=== PATIENT | female | born 1945 | race Native Hawaiian/Other Pacific Islander ===

== ENCOUNTER 2019-03-22 23:01 | Observation (INO) | payer MEDICARE, OTHER ==
[2019-03-22] MEDS ORDERED: SODIUM CHLORIDE 0.9% 1,000 ML IV STA (23:15)
[2019-03-22 23:34] LABS: Basophils # (A) 0.1 k/uL (0-0.2); Basophils % (A) 1 %; Eosinophils # (A) 0.1 k/uL (0-0.7); Eosinophils % (A) 1 %; HCT 37.5 % (34.0-46.0); HGB 12.5 gm/dL (11.4-16.0); Lymphocytes # (A) 1.4 k/uL (1.0-4.8); Lymphocytes % (A) 14 %; MCH 27.1 pg (25.0-35.0); MCHC 33.2 g/dL (31.0-37.0); MCV 81.4 fL (80.0-100.0); Mean Platelet Volume 7.4; Monocytes # (A) 0.5 k/uL (0-1.0); Monocytes % (A) 5 %; Neutrophils # (A) 7.5 k/uL (1.3-7.7); Neutrophils % (A) 78 %; Platelet Count 209 k/uL (150-450); RBC 4.61 m/uL (3.80-5.40); RDW 13.8 % (11.5-15.5); WBC 9.7 k/uL (3.8-10.6)
--- NOTE | 2019-03-22 23:35 | ED ---
Abdominal Pain HPI - General Stated Complaint: abd pain Time Seen by Provider: 03/22/19 23:04 Source: EMS Mode of arrival: EMS Limitations: no limitations - History of Present Illness Initial Comments: Beth is a pleasant 72 yo female who presents to the ER today for evaluation of abdominal pain and constipation x5 days. Patient states she hasnt had a BM for 4-5 days, she has developed progressively worsening epigastric and left-sided abdominal pain. Patient reports she's had decreased appetite, she has burning pain in her epigastrium. She does have a history of ulcers. She has been taking Mobic for arthritic pain. - Related Data Home Medications Medication Instructions Recorded Confirmed Atorvastatin [Lipitor] 40 mg PO DAILY 03/22/19 03/22/19 Insulin NPH Hum/Reg Insulin Hm 120 unit SQ BID 03/22/19 03/22/19 [NovoLIN 70-30 100 UNIT/ML VIAL] Levothyroxine Sodium [Synthroid] 50 mcg PO DAILY 03/22/19 03/22/19 Losartan/Hydrochlorothiazide 1 tab PO DAILY 03/22/19 03/22/19 [Losartan-Hctz 100-25 mg Tab] Meloxicam 7.5 mg PO BID 03/22/19 03/22/19 OXcarbazepine [Trileptal] 300 mg PO DAILY 03/22/19 03/22/19 OXcarbazepine [Trileptal] 600 mg PO HS 03/22/19 03/22/19 Omeprazole 40 mg PO BID 03/22/19 03/22/19 Oxybutynin Chloride 5 mg PO BID 03/22/19 03/22/19 Sertraline [Zoloft] 200 mg PO DAILY 03/22/19 03/22/19 amLODIPine [Norvasc] 5 mg PO DAILY 03/22/19 03/22/19 Allergies Allergy/AdvReac Type Severity Reaction Status Date / Time No Known Allergies Allergy Verified 03/22/19 23:31 Review of Systems ROS Statement: Those systems with pertinent positive or pertinent negative responses have been documented in the HPI. ROS Other: All systems not noted in ROS Statement are negative. Past Medical History Past Medical History: Diabetes Mellitus, Hypertension, Thyroid Disorder Additional Past Medical History / Comment(s): stomach ulcers, constipation, History of Any Multi-Drug Resistant Organisms: None Reported Past Surgical History: Appendectomy, Cholecystectomy Past Psychological History: No Psychological Hx Reported Smoking Status: Former smoker Past Alcohol Use History: None Reported Past Drug Use History: None Reported General Exam - General Exam Comments Initial Comments: Physical Exam GENERAL: Patient is well-developed and well-nourished. Appears uncomfortable HENT: Normocephalic, Atraumatic. EYES: PERRL, EOMI PULMONARY: Unlabored respirations. No audible rales rhonchi or wheezing was noted. CARDIOVASCULAR: There is a regular rate and rhythm without any murmurs gallops or rubs. ABDOMEN: Obese Well healed open cholecystectomy scar Tenderness to palpation in epigastrum Normal active bowel sounds SKIN: Skin is clear with no lesions or rashes and otherwise unremarkable. : Deferred NEUROLOGIC: Patient is alert and oriented x3. Moving all extremities spontaneously MUSCULOSKELETAL: Normal extremities with adequate strength and full range of motion. No lower extremity swelling or edema. No calf tenderness. PSYCHIATRIC: Normal psychiatric evaluation. Limitations: no limitations Course Vital Signs 03/22/19 03/23/19 03/23/19 23:02 00:28 02:13 Temperature 97.9 F 97.9 F Pulse Rate 81 82 80 Respiratory 20 20 18 Rate Blood Pressure 142/76 131/62 135/96 O2 Sat by Pulse 96 97 95 Oximetry 03/23/19 03/23/19 03/23/19 03:30 04:28 05:37 Temperature 98.6 F 98.7 F Pulse Rate 89 85 82 Respiratory 20 20 17 Rate Blood Pressure 134/56 144/59 135/58 O2 Sat by Pulse 96 95 96 Oximetry Medical Decision Making - Medical Decision Making Seen and evaluated history was obtained from patient and family next and this pleasant 73-year-old female has been taking Mobitz for arthritis pain. She now has significant burning epigastric pain, decreased by mouth intake, constipation 5 days next and labs and imaging were ordered Labs with hypokalemia, he spent protocol ordered Imaging with no acute findings patient was able to ambulate to the restroom have a small bowel movement. She reports only minimal improvement in her discomfort after this. I suspect the patient is suffering from gastritis likely due to NSAID use. Offered admit the patient for fluid resuscitation, I'll x-ray replacement and pain management. Patient is agreeable to this. Patient care was discussed Dr. Easley who agrees with plan for admission. - Lab Data Result diagrams: 03/22/19 23:20 03/22/19 23:20 Lab Results 03/22/19 03/22/19 03/22/19 Range/Units 23:20 23:20 23:20 WBC 9.7 (3.8-10.6) k/uL RBC 4.61 (3.80-5.40) m/uL Hgb 12.5 (11.4-16.0) gm/dL Hct 37.5 (34.0-46.0) % MCV 81.4 (80.0-100.0) fL MCH 27.1 (25.0-35.0) pg MCHC 33.2 (31.0-37.0) g/dL RDW 13.8 (11.5-15.5) % Plt Count 209 (150-450) k/uL Neutrophils % 78 % Lymphocytes % 14 % Monocytes % 5 % Eosinophils % 1 % Basophils % 1 % Neutrophils # 7.5 (1.3-7.7) k/uL Lymphocytes # 1.4 (1.0-4.8) k/uL Monocytes # 0.5 (0-1.0) k/uL Eosinophils # 0.1 (0-0.7) k/uL Basophils # 0.1 (0-0.2) k/uL Sodium 138 (137-145) mmol/L Potassium 2.9 L (3.5-5.1) mmol/L Chloride 98 (98-107) mmol/L Carbon Dioxide 29 (22-30) mmol/L Anion Gap 11 mmol/L BUN 27 H (7-17) mg/dL Creatinine 0.92 (0.52-1.04) mg/dL Est GFR (CKD-EPI)AfAm 71 (>60 ml/min/1.73 sqM) Est GFR (CKD-EPI)NonAf 61 (>60 ml/min/1.73 sqM) Glucose 186 H (74-99) mg/dL Plasma Lactic Acid Randy (0.7-2.0) mmol/L Calcium 9.5 (8.4-10.2) mg/dL Total Bilirubin 0.2 (0.2-1.3) mg/dL AST 31 (14-36) U/L ALT 25 (9-52) U/L Alkaline Phosphatase 134 H (38-126) U/L Troponin I 0.013 (0.000-0.034) ng/mL Total Protein 7.1 (6.3-8.2) g/dL Albumin 4.1 (3.5-5.0) g/dL Lipase 133 (23-300) U/L Urine Color Urine Appearance (Clear) Urine pH (5.0-8.0) Ur Specific [place] (1.001-1.035) Urine Protein (Negative) Urine Glucose (UA) (Negative) Urine Ketones (Negative) Urine Blood (Negative) Urine Nitrite (Negative) Urine Bilirubin (Negative) Urine Urobilinogen (<2.0) mg/dL Ur Leukocyte Esterase (Negative) Urine RBC (0-5) /hpf Urine WBC (0-5) /hpf Ur Squamous Epith Cells (0-4) /hpf Ur Transition Epith Cell (0-1) /hpf Urine Bacteria (None) /hpf Hyaline Casts (0-2) /lpf Urine Mucus (None) /hpf 03/22/19 03/23/19 Range/Units 23:20 02:15 WBC (3.8-10.6) k/uL RBC (3.80-5.40) m/uL Hgb (11.4-16.0) gm/dL Hct (34.0-46.0) % MCV (80.0-100.0) fL MCH (25.0-35.0) pg MCHC (31.0-37.0) g/dL RDW (11.5-15.5) % Plt Count (150-450) k/uL Neutrophils % % Lymphocytes % % Monocytes % % Eosinophils % % Basophils % % Neutrophils # (1.3-7.7) k/uL Lymphocytes # (1.0-4.8) k/uL Monocytes # (0-1.0) k/uL Eosinophils # (0-0.7) k/uL Basophils # (0-0.2) k/uL Sodium (137-145) mmol/L Potassium (3.5-5.1) mmol/L Chloride (98-107) mmol/L Carbon Dioxide (22-30) mmol/L Anion Gap mmol/L BUN (7-17) mg/dL Creatinine (0.52-1.04) mg/dL Est GFR (CKD-EPI)AfAm (>60 ml/min/1.73 sqM) Est GFR (CKD-EPI)NonAf (>60 ml/min/1.73 sqM) Glucose (74-99) mg/dL Plasma Lactic Acid Randy 1.5 (0.7-2.0) mmol/L Calcium (8.4-10.2) mg/dL Total Bilirubin (0.2-1.3) mg/dL AST (14-36) U/L ALT (9-52) U/L Alkaline Phosphatase (38-126) U/L Troponin I (0.000-0.034) ng/mL Total Protein (6.3-8.2) g/dL Albumin (3.5-5.0) g/dL Lipase (23-300) U/L Urine Color Yellow Urine Appearance Clear (Clear) Urine pH 6.5 (5.0-8.0) Ur Specific [place] 1.018 (1.001-1.035) Urine Protein Negative (Negative) Urine Glucose (UA) Negative (Negative) Urine Ketones Negative (Negative) Urine Blood Negative (Negative) Urine Nitrite Negative (Negative) Urine Bilirubin Negative (Negative) Urine Urobilinogen <2.0 (<2.0) mg/dL Ur Leukocyte Esterase Small H (Negative) Urine RBC <1 (0-5) /hpf Urine WBC 5 (0-5) /hpf Ur Squamous Epith Cells 1 (0-4) /hpf Ur Transition Epith Cell <1 (0-1) /hpf Urine Bacteria Rare H (None) /hpf Hyaline Casts 22 H (0-2) /lpf Urine Mucus Rare H (None) /hpf Disposition Clinical Impression: Hypokalemia, Abdominal pain Disposition: ADMITTED IP TO THIS HOSP Condition: Stable Is patient prescribed a controlled substance at d/c from ED?: No
[2019-03-22 23:41] LABS: Albumin 4.1 g/dL (3.5-5.0); Calcium 9.5 mg/dL (8.4-10.2); Potassium 2.9 mmol/L (3.5-5.1); Total Bilirubin 0.2 mg/dL (0.2-1.3); Total Protein 7.1 g/dL (6.3-8.2)
[2019-03-23] MEDS ORDERED: Potassium Replacement Protocol 1 EACH MISC MISCELLANE PRN (01:10)
[2019-03-23] MEDS: POTASSIUM CHLORIDE ER 20 MEQ TAB.ER PO SCH ×7 (02:14→21:42)
--- NOTE | 2019-03-23 02:16 | CT ---
EXAMINATION TYPE: CT abdomen pelvis w con DATE OF EXAM: 03/23/2019 COMPARISON: 11/02/2011 HISTORY: epigastric and constipation CT DLP: 2254.5 mGycm Automated exposure control for dose reduction was used. TECHNIQUE: Helical acquisition of images was performed from the lung bases through the pelvis. CONTRAST: Performed without Oral Contrast and with IV Contrast, patient injected with 100 mL of Isovue 300. FINDINGS: There is minimal atelectasis at the lung bases. There is no pleural effusion. Heart is enlarged. Ther e is no pericardial effusion. There is coronary artery calcification. Liver shows no focal defect. There are clips from cholecystectomy. Common bile duct measures 12 mm. I ntrahepatic bile ducts are not dilated. Spleen is intact. There is no pancreatic mass. Stomach appear s normal. There is no adrenal mass. Kidneys show satisfactory contrast opacification. There is no hydronephrosi s. Ureters are not dilated. There is no retroperitoneal adenopathy. There are numerous diverticula in the sigmoid colon. Bladder distends smoothly. There is no inguinal hernia. Uterus appears lobulated consistent with multiple fibroids. Appendix is not seen. There is no sign of thickened appendix. Abdominal aorta is atheromatous. There is no ascites. There is no free air. There is no mesenteric ed priti. There is no sign of a bowel obstruction. There are spondylotic changes in the lumbar spine. There is degenerative first-degree L4-5 spondyloli sthesis. There is no compression fracture. The bony pelvis appears intact. There is increased density in the subcutaneous fat over the anterior abdomen that could relate to mul tiple injection sites. There is soft tissue air bubble. IMPRESSION: THERE IS MODERATE COLONIC DIVERTICULOSIS WITHOUT SIGN OF DIVERTICULITIS. FIBROID UTERUS. NO SIGNIFICA NT CHANGE COMPARED TO OLD EXAM.
[2019-03-23 03:20] LABS: Appearance,Urine Clear (Clear); Bacteria,Urine Rare /hpf; Bilirubin,Urine Negative (Negative); Blood,Urine Negative (Negative); Color,Urine Yellow; Glucose,Urine (UA) Negative (Negative); Hyaline Casts,Urine 22 /lpf (0-2); Ketones,Urine Negative (Negative); Leukocyte Esterase,Urine Small (Negative); Mucus,Urine Rare /hpf; Nitrite,Urine Negative (Negative); PH, Urine 6.5 (5.0-8.0); Protein,Urine Negative (Negative); RBC,Urine <1 /hpf (0-5); Specific Gravity,Urine 1.018 (1.001-1.035); Squamous Epithelial Cell,Urine 1 /hpf (0-4); Transitional Epi Cells,Urine <1 /hpf (0-1); Urobilinogen,Urine <2.0 mg/dL (<2.0)
[2019-03-23] MEDS ORDERED: NALOXONE 0.4 MG/ML 1 ML VIAL IV PRN (04:57)
[2019-03-23] MEDS ORDERED: ONDANSETRON 4 MG/2 ML VIAL IVP PRN (04:57)
[2019-03-23 06:35] LABS: Glucose,Whole Blood 127 mg/dL (75-99)
[2019-03-23 07:38] VITALS: RESP 18
[2019-03-23] MEDS: SUCRALFATE 1 GM TAB PO SCH ×4 (08:17→19:56)
[2019-03-23] MEDS ORDERED: PANTOPRAZOLE 40 MG/10 ML VIAL IV SCH (09:00)
[2019-03-23] MEDS ORDERED: DOCUSATE 100 MG CAP PO PRN (09:00)
[2019-03-23] MEDS ORDERED: BISACODYL 5 MG TABLET.DR PO PRN (09:00)
--- NOTE | 2019-03-23 10:11 | XR ---
EXAMINATION TYPE: XR chest 2V DATE OF EXAM: 03/22/2019 COMPARISON: 11/02/2011 HISTORY: Chest pain TECHNIQUE: Frontal and lateral views of the chest are obtained. FINDINGS: There is no heart failure nor confluent pneumonic infiltrate. Costophrenic angles are marko r. Thoracic aorta is atheromatous. There are chest leads. Bony thorax is intact. There is spurring in the thoracic spine IMPRESSION: No active cardiopulmonary disease. Minimal pulmonary fibrosis. Lung markings increased c ompared to old exam.
--- NOTE | 2019-03-23 10:11 | XR ---
EXAMINATION TYPE: XR KUB DATE OF EXAM: 03/22/2019 COMPARISON: 03/04/2012 HISTORY: Epigastric pain TECHNIQUE: 2 views upright FINDINGS: There is no sign of intestinal obstruction or pneumoperitoneum. Fecal pattern is normal. Th ere are clips from cholecystectomy. Lung bases are clear. There are no pathologic calcifications over the kidneys. IMPRESSION: Nonacute abdomen. No change.
[2019-03-23 11:39] LABS: Glucose,Whole Blood 150 mg/dL (75-99)
[2019-03-23] MEDS: LIDOCAINE 5% PATCH TOPICAL SCH (12:52)
--- NOTE | 2019-03-23 13:08 | P.HPIM ---
History of Present Illness H&P Date: 03/23/19 Chief Complaint: Abdominal pain and constipation This is a 73-year-old female patient of Dr. Tommy Monzon with past medical history of diabetes mellitus type 2 insulin requiring, diabetic neuropathy, hypertension, hyperlipidemia, hypothyroidism, gastroesophageal reflux disease, overactive bladder, recurrent depression. Patient presented to [facility] emergency center due to abdominal pain in the epigastric area as well as constipation and she had not had a bowel movement for 4-5 days. She's had decreased appetite and a burning type pain in the epigastrium. Patient has been taking Mobic but her daughter states that she does not always take this with food. Patient is also on Lasix and potassium which is not listed on her home medication list. Patient is also complaining of right shoulder pain and difficulty lifting her arm. She does have history of diverticulosis. She denies any vomiting. No blood in her stools. Patient was afebrile, vital signs stable, potassium was found to be 2.9, BUN 27 creatinine 0.92, blood sugar 186. CBC was unremarkable. Troponin negative. Lipase 133, alkaline phosphatase 134, AST ALT total bilirubin within normal limits. Lactic acid 1.5. Urinalysis was clear with leukoesterase small. Chest x-ray showed no acute cardiopulmonary disease. Minimal pulmonary fibrosis. KUB non-acute a bdomen. CAT scan of the abdomen and pelvis with contrast revealed moderate colonic diverticulosis without diverticulitis. Fibroid uterus. No significant change. Patient was started on IV fluids and received 60 mEq of potassium and Protonix and was placed on the observation unit. Repeat potassium was 3.2 x 3.7. The patient did have a large bowel movement this morning. Patient will be resumed on Lasix and potassium as her home medication. We'll plan to recheck electrolytes in the morning and plan for discharge. Mobic has been discontinued and patient has been encouraged to follow-up for possible injection in the right shoulder, lidocaine patch added. Review of Systems All systems: negative Constitutional: Reports poor appetite, Denies chills, Denies fatigue, Denies fever, Denies lethargy, Denies malaise Eyes: denies blurred vision, denies pain Ears, nose, mouth and throat: Denies headache, Denies sore throat Cardiovascular: Denies chest pain, Denies shortness of breath Respiratory: Denies cough Gastrointestinal: Reports abdominal pain, Reports constipation, Denies diarrhea, Denies nausea, Denies vomiting Genitourinary: Denies dysuria, Denies hematuria Musculoskeletal: Denies myalgias Musculoskeletal: right: shoulder pain, shoulder stiffness Integumentary: Denies pruritus, Denies rash, Denies wounds Neurological: Denies change in mentation, Denies change in speech, Denies numbness, Denies weakness Psychiatric: Denies anxiety, Denies depression Endocrine: Denies fatigue, Denies weight change Past Medical History Past Medical History: Diabetes Mellitus, Hyperlipidemia, Hypertension, Osteoarthritis (OA), Thyroid Disorder Additional Past Medical History / Comment(s): IDDM type II, neuropathy R leg, hypoglycemia at night, past gastric ulcers, diverticulitis, constipation, arthritis in several joints, back pain, hypothyroid, bilateral cataracts, incontinence of urine, URI History of Any Multi-Drug Resistant Organisms: None Reported Past Surgical History: Appendectomy, Breast Surgery, Cholecystectomy, Orthopedic Surgery Additional Past Surgical History / Comment(s): Lower laminectomy x 2, L knee arthroscopy, L breast benign biopsy, colonoscopy. Past Anesthesia/Blood Transfusion Reactions: Postoperative Nausea & Vomiting (PONV) Smoking Status: Former smoker Additional Past Alcohol Use History / Comment(s): Patient was a smoker of 2 or more packs per day for 35 years and quit in 1994. No marijuana, illicit drug use or alcohol use. - Past Family History Father Additional Family Medical History / Comment(s): Father committed suicide in his late 50s. Mother Family Medical History: Cancer Additional Family Medical History / Comment(s): Mother in her late 80s from anesthesia complications. She had nonmalignant cerebral growth. Brother(s) Additional Family Medical History / Comment(s): Patient has 1 brother with diverticulosis. Sister(s) Additional Family Medical History / Comment(s): Patient has one sister with liver cancer and diabetes. Daughter(s) Additional Family Medical History / Comment(s): Patient has a total of 6 children. One son in a motor vehicle accident. One son has suffered a stroke with history of diabetes and hypertension. One daughter has diabetes and hypertension. One daughter with diverticulitis rheumatoid arthritis. One daughter and one son do not follow with physician. Medications and Allergies Home Medications Medication Instructions Recorded Confirmed Type Atorvastatin [Lipitor] 40 mg PO DAILY 03/22/19 03/22/19 History Insulin NPH Hum/Reg Insulin Hm 120 unit SQ BID 03/22/19 03/22/19 History [NovoLIN 70-30 100 UNIT/ML VIAL] Levothyroxine Sodium [Synthroid] 50 mcg PO DAILY 03/22/19 03/22/19 History Losartan/Hydrochlorothiazide 1 tab PO DAILY 03/22/19 03/22/19 History [Losartan-Hctz 100-25 mg Tab] Meloxicam 7.5 mg PO BID 03/22/19 03/22/19 History OXcarbazepine [Trileptal] 300 mg PO DAILY 03/22/19 03/22/19 History OXcarbazepine [Trileptal] 600 mg PO HS 03/22/19 03/22/19 History Omeprazole 40 mg PO BID 03/22/19 03/22/19 History Oxybutynin Chloride 5 mg PO BID 03/22/19 03/22/19 History Sertraline [Zoloft] 200 mg PO DAILY 03/22/19 03/22/19 History amLODIPine [Norvasc] 5 mg PO DAILY 03/22/19 03/22/19 History Allergies Allergy/AdvReac Type Severity Reaction Status Date / Time No Known Allergies Allergy Verified 03/22/19 23:31 Physical Exam Vitals: Vital Signs Temp Pulse Pulse Resp BP BP Pulse Ox 03/23/19 11:19 97.9 F 82 18 114/65 96 03/23/19 07:00 98.4 F 85 18 116/66 95 03/23/19 05:59 22 03/23/19 05:56 98.4 F 73 18 156/62 97 03/23/19 05:37 98.7 F 82 17 135/58 96 03/23/19 04:28 98.6 F 85 20 144/59 95 03/23/19 03:30 89 20 134/56 96 03/23/19 02:13 97.9 F 80 18 135/96 95 03/23/19 00:28 82 20 131/62 97 03/22/19 23:02 97.9 F 81 20 142/76 96 Intake and Output 03/22/19 03/23/19 03/23/19 22:59 06:59 14:59 Other: Weight 116.573 kg Gen: This is a morbidly obese female. She is sitting up in bed and appears to be comfortable. HEENT: Head is atraumatic, normocephalic. Pupils equal, round. Sclerae is anicteric. NECK: Supple. No JVD. No lymphadenopathy. No thyromegaly. LUNGS: Clear to auscultation. No wheezes or rhonchi. No intercostal retractions. HEART: Regular rate and rhythm. No murmur. ABDOMEN: Soft. Bowel sounds are present. No masses. Mild epigastric tenderness. EXTREMITIES: Trace bilateral pedal edema. No calf tenderness. Decreased range of motion to the right shoulder. NEUROLOGICAL: Patient is awake, alert and oriented x3. Cranial nerves 2 through 12 are grossly intact. Results CBC & Chem 7: 03/22/19 23:20 03/23/19 12:04 Labs: Abnormal Lab Results - Last 24 Hours (Table) 03/22/19 03/23/19 03/23/19 Range/Units 23:20 02:15 06:33 Potassium 2.9 L (3.5-5.1) mmol/L BUN 27 H (7-17) mg/dL Glucose 186 H (74-99) mg/dL POC Glucose (mg/dL) 127 H (75-99) mg/dL Alkaline Phosphatase 134 H (38-126) U/L Ur Leukocyte Esterase Small H (Negative) Urine Bacteria Rare H (None) /hpf Hyaline Casts 22 H (0-2) /lpf Urine Mucus Rare H (None) /hpf 03/23/19 03/23/19 Range/Units 08:41 11:37 Potassium 3.2 L (3.5-5.1) mmol/L BUN (7-17) mg/dL Glucose (74-99) mg/dL POC Glucose (mg/dL) 150 H (75-99) mg/dL Alkaline Phosphatase (38-126) U/L Ur Leukocyte Esterase (Negative) Urine Bacteria (None) /hpf Hyaline Casts (0-2) /lpf Urine Mucus (None) /hpf Thrombosis Risk Factor Assmnt - Choose All That Apply Any of the Below Risk Factors Present?: Yes Each Factor Represents 1 point: Obesity (BMI >25) Other Risk Factors: Yes Each Risk Factor Represents 3 Points: Age 75 years or older Other congenital or acquired thrombophilia - If yes, enter type in comment: No Thrombosis Risk Factor Assessment Total Risk Factor Score: 4 Thrombosis Risk Factor Assessment Level: Moderate Risk Assessment and Plan Plan: 1. Hypokalemia from dehydration. Patient is status post IV fluids and potassium replacement. Recheck electrolytes in the morning. 2. Epigastric pain most likely secondary to NSAID gastritis. Protonix 40 mg daily, Carafate 1 g before meals and at bedtime. Mobic is discontinued. Lidocaine patch added for pain. 3. Chronic right shoulder pain. 4. Constipation, resolved. Continue Colace and Dulcolax as needed. 5. Hypertension. Continue amlodipine 5 mg daily, losartan hydrochlorothiazide 59213 milligram daily. 6. Lower extremity edema. Patient will be resumed on Lasix and potassium. 7. Hyperlipidemia. Continue atorvastatin 40 mg at bedtime. 8. Diabetes mellitus type 2 insulin requiring with diabetic neuropathy. Continue Novolin 70/30 at reduced 60 units twice daily and NovoLog scale before meals and at bedtime. Continue Trileptal 300 mg daily and 600 at bedtime. 9. Hypothyroidism. Continue levothyroxine 50 g daily. 10. Recurrent depression. Continue Zoloft 200 mg daily. Patient placed as an observation status. Discharge plan: Home tomorrow Impression and plan of care have been directed as dictated by the signing physician. Ida Pastrana nurse practitioner acting as scribe for signing physician.
[2019-03-23] MEDS ORDERED: POTASSIUM CHLORIDE ER 20 MEQ TAB.ER PO SCH (14:00)
[2019-03-23 16:21] VITALS: BMI 50.1
[2019-03-23 17:08] LABS: Glucose,Whole Blood 240 mg/dL (75-99)
[2019-03-23] MEDS: INSULN ASP PRT/INSULIN ASPART 100 UNIT/ML 10 ML VIAL SQ SCH (17:11)
[2019-03-23] MEDS: FUROSEMIDE 20 MG TAB PO SCH (17:11)
[2019-03-23] MEDS: INSULIN ASPART (NovoLOG) 100 UNIT/ML VIAL SQ SCH ×2 (17:11→19:57)
[2019-03-23] MEDS: OXYBUTYNIN CHLORIDE 5 MG TAB PO SCH (19:56)
[2019-03-23 19:58] LABS: Glucose,Whole Blood 128 mg/dL (75-99)
[2019-03-23] MEDS ORDERED: OXcarbazepine 300 MG TAB PO SCH (21:00)
[2019-03-24] MEDS ORDERED: LEVOTHYROXINE 50 MCG TAB ONE (06:30)
[2019-03-24] MEDS ORDERED: LEVOTHYROXINE 50 MCG TAB PO SCH (06:30)
[2019-03-24 07:19] LABS: Glucose,Whole Blood 119 mg/dL (75-99)
[2019-03-24] MEDS: INSULN ASP PRT/INSULIN ASPART 100 UNIT/ML 10 ML VIAL SQ SCH (07:52)
[2019-03-24] MEDS: INSULIN ASPART (NovoLOG) 100 UNIT/ML VIAL SQ SCH ×2 (07:52→12:03)
[2019-03-24 08:05] LABS: African American GFR (CKD) >90 (>60 ml/min/1.73 sqM); Anion Gap 4 mmol/L; Blood Urea Nitrogen 14 mg/dL (7-17); Calcium 8.9 mg/dL (8.4-10.2); Carbon Dioxide 31 mmol/L (22-30); Chloride 107 mmol/L (98-107); Glucose 109 mg/dL (74-99); Potassium 3.7 mmol/L (3.5-5.1); Sodium 142 mmol/L (137-145)
[2019-03-24] MEDS: OXYBUTYNIN CHLORIDE 5 MG TAB PO SCH (08:42)
[2019-03-24] MEDS: POTASSIUM CHLORIDE ER 20 MEQ TAB.ER PO SCH (08:42)
[2019-03-24] MEDS: FUROSEMIDE 20 MG TAB PO SCH (08:42)
[2019-03-24] MEDS: LIDOCAINE 5% PATCH TOPICAL SCH (08:43)
[2019-03-24] MEDS: SUCRALFATE 1 GM TAB PO SCH ×2 (08:44→12:03)
[2019-03-24] MEDS ORDERED: SERTRALINE 100 MG TAB PO SCH (09:00)
[2019-03-24] MEDS ORDERED: LOSARTAN-HCTZ 50-12.5 MG 1 EACH TAB PO SCH (09:00)
[2019-03-24] MEDS ORDERED: amLODIPine 5 MG TAB PO SCH (09:00)
[2019-03-24] MEDS ORDERED: ATORVASTATIN 40 MG TAB PO SCH (09:00)
[2019-03-24] MEDS ORDERED: PANTOPRAZOLE 40 MG TABLET PO SCH (09:00)
[2019-03-24] MEDS ORDERED: OXcarbazepine 300 MG TAB PO SCH (09:00)
[2019-03-24 11:19] VITALS: BP 146/78; PULSE 82; TEMP 98.2
[2019-03-24 11:45] LABS: Glucose,Whole Blood 248 mg/dL (75-99)
[2019-03-24 16:27] LABS: Hemoglobin A1C 7.9 % (4.0-6.0)
--- NOTE | 2019-03-24 16:44 | P.DS ---
Providers Date of admission: 03/23/19 04:57 Expected date of discharge: 03/24/19 Attending physician: Kat Easley Primary care physician: Tommy Monzon [place] [facility] Course: This is a 73-year-old female patient of Dr. Tommy Monzon with past medical history of diabetes mellitus type 2 insulin requiring, diabetic neuropathy, hypertension, hyperlipidemia, hypothyroidism, gastroesophageal reflux disease, overactive bladder, recurrent depression. Patient presented to [facility] emergency center due to abdominal pain in the epigastric area as well as constipation and she had not had a bowel movement for 4-5 days. She's had decreased appetite and a burning type pain in the epigastrium. Patient has been taking Mobic but her daughter states that she does not always take this with food. Patient is also on Lasix and potassium which is not listed on her home medication list. Patient is also complaining of right shoulder pain and difficulty lifting her arm. She does have history of diverticulosis. She denies any vomiting. No blood in her stools. Patient was afebrile, vital signs stable, potassium was found to be 2.9, BUN 27 creatinine 0.92, blood sugar 186. CBC was unremarkable. Troponin negative. Lipase 133, alkaline phosphatase 134, AST ALT total bilirubin within normal limits. Lactic acid 1.5. Urinalysis was clear with leukoesterase small. Chest x-ray showed no acute cardiopulmonary disease. Minimal pulmonary fibrosis. KUB non-acute abdomen. CAT scan of the abdomen and pelvis with contrast revealed moderate colonic diverticulosis without diverticulitis. Fibroid uterus. No significant change. Patient was started on IV fluids and received 60 mEq of potassium and Protonix and was placed on the observation unit. Repeat potassium was 3.2 x 3.7. The patient did have a large bowel movement this morning. Patient will be resumed on Lasix and potassium as her home medication. We'll plan to recheck electrolytes in the morning and plan for discharge. Mobic has been discontinued and patient has been encouraged to follow-up for possible injection in the right shoulder, lidocaine patch added. 03/24: Patient denies any abdominal pain. Her eating is back to normal. No nausea or vomiting. She has had 2 bowel movements. She's been afebrile, heart rate 82, blood pressure 146/78 and pulse ox 97% on room air. Repeat lab work this morning reveals sodium 142, potassium 3.7, chloride 107, CO2 31, BUN 14 creatinine 0.6. Blood sugars running between 109 and 248. At home, patient will resume her full dose of insulins as we had decreased her dose due to minimal intake. The patient will be discharged home today in stable condition. Discharge diagnoses: 1. Hypokalemia from dehydration. 2. Epigastric pain most likely secondary to NSAID gastritis. 3. Chronic right shoulder pain. 4. Constipation, resolved. 5. Hypertension. 6. Lower extremity edema. 7. Hyperlipidemia. 8. Diabetes mellitus type 2 insulin requiring with diabetic neuropathy. 9. Hypothyroidism. 10. Recurrent depression. Discharge plan: Home with [facility]. Impression and plan of care have been directed as dictated by the signing physi cian. Ida Pastrana nurse practitioner acting as scribe for signing physician. Patient Condition at Discharge: Good Plan - Discharge Summary Discharge Rx Participant: No New Discharge Prescriptions: New Lidocaine 5% Oint [Xylocaine 5% Oint] 1 applic TOPICAL BID #30 oint...g. Continue OXcarbazepine [Trileptal] 300 mg PO DAILY amLODIPine [Norvasc] 5 mg PO DAILY Sertraline [Zoloft] 200 mg PO DAILY OXcarbazepine [Trileptal] 600 mg PO HS Levothyroxine Sodium [Synthroid] 50 mcg PO DAILY Oxybutynin Chloride 5 mg PO BID Meloxicam 7.5 mg PO BID Losartan/Hydrochlorothiazide [Losartan-Hctz 100-25 mg Tab] 1 tab PO DAILY Atorvastatin [Lipitor] 40 mg PO DAILY Omeprazole 40 mg PO BID Insulin NPH Hum/Reg Insulin Hm [NovoLIN 70-30 100 UNIT/ML VIAL] 120 unit SQ BID Discharge Medication List Atorvastatin [Lipitor] 40 mg PO DAILY 03/22/19 [History] Insulin NPH Hum/Reg Insulin Hm [NovoLIN 70-30 100 UNIT/ML VIAL] 120 unit SQ BID 03/22/19 [History] Levothyroxine Sodium [Synthroid] 50 mcg PO DAILY 03/22/19 [History] Losartan/Hydrochlorothiazide [Losartan-Hctz 100-25 mg Tab] 1 tab PO DAILY 03/22/19 [History] Meloxicam 7.5 mg PO BID 03/22/19 [History] OXcarbazepine [Trileptal] 300 mg PO DAILY 03/22/19 [History] OXcarbazepine [Trileptal] 600 mg PO HS 03/22/19 [History] Omeprazole 40 mg PO BID 03/22/19 [History] Oxybutynin Chloride 5 mg PO BID 03/22/19 [History] Sertraline [Zoloft] 200 mg PO DAILY 03/22/19 [History] amLODIPine [Norvasc] 5 mg PO DAILY 03/22/19 [History] Lidocaine 5% Oint [Xylocaine 5% Oint] 1 applic TOPICAL BID #30 oint...g. 03/24/19 [Rx] Follow up Appointment(s)/Referral(s): [facility], [NON-STAFF] - 1-2 Days Tommy Monzon MD [Primary Care Provider] - 03/29/19 1:30 pm (patient to follow up with Dr. Vivek Monzon post hospitalization.) Patient Instructions/Handouts: Hypokalemia (DC) Activity/Diet/Wound Care/Special Instructions: Increase potassium to three times daily, continue current dose of Lasix. Discharge Disposition: HOME SELF-CARE
== END 2019-03-24 14:05 | disposition home or self-care (01) ==
LOC: EC 23:01 → 1SOBS 03-23 04:57
PROVIDERS: ADMIT Family Medicine; ATTEND Family Medicine
DX: E86.0 Dehydration (principal); E87.6 Hypokalemia; R10.13 Epigastric pain; G89.29 Other chronic pain; M25.511 Pain in right shoulder; K59.00 Constipation, unspecified; I10 Essential (primary) hypertension; R60.0 Localized edema; E78.5 Hyperlipidemia, unspecified; E11.41 Type 2 diabetes mellitus with diabetic mononeuropathy; G57.91 Unspecified mononeuropathy of right lower limb; E03.9 Hypothyroidism, unspecified; F33.9 Major depressive disorder, recurrent, unspecified; K57.30 Diverticulosis of large intestine without perforation or abscess without bleeding; D25.9 Leiomyoma of uterus, unspecified; N32.81 Overactive bladder; K21.9 Gastro-esophageal reflux disease without esophagitis; M15.9 Polyosteoarthritis, unspecified; H26.9 Unspecified cataract; E66.01 Morbid (severe) obesity due to excess calories; Z68.43 Body mass index [BMI] 50.0-59.9, adult; R32 Unspecified urinary incontinence; Z79.890 Hormone replacement therapy; Z79.4 Long term (current) use of insulin; Z79.1 Long term (current) use of non-steroidal anti-inflammatories (NSAID); Z79.899 Other long term (current) drug therapy; Z87.11 Personal history of peptic ulcer disease; Z90.49 Acquired absence of other specified parts of digestive tract; Z87.891 Personal history of nicotine dependence; Z82.61 Family history of arthritis; Z83.3 Family history of diabetes mellitus; Z83.79 Family history of other diseases of the digestive system; Z82.3 Family history of stroke; Z82.0 Family history of epilepsy and other diseases of the nervous system; Z82.49 Family history of ischemic heart disease and other diseases of the circulatory system; Z80.0 Family history of malignant neoplasm of digestive organs
CPT/HCPCS: 96374; 96361; 99285; 36415; 93005; 80053; 80048; 83605; 83690; 84132; 84484; 85025; 81001; 83036; 71046; 74018; 74177; G0378 ×2; C9113; Q9967

== ENCOUNTER 2024-04-15 20:45 | Observation (INO) | payer MEDICARE, OTHER ==
--- NOTE | 2024-04-15 21:19 | ED ---
Abdominal Pain HPI - General Chief Complaint: Abdominal Pain Stated Complaint: Abd Pain Time Seen by Provider: 04/15/24 20:53 Source: patient, family, RN notes reviewed Mode of arrival: ambulatory Limitations: language barrier - History of Present Illness Initial Comments: This is an 78-year-old female who presents to the emergency department for abdominal pain. Family states that she started to complain of discomfort yesterday. It was initially intermittent and less severe, but seemed to get worse today. She has had some problems with constipation and family believes that that may be a contributing factor to her pain. Patient states that the p ain is in the epigastric region and described as sharp. Family tried to give her MiraLAX and other stool softeners but she is not willing to take them. She has not had any nausea or vomiting. Family stated that she also started to complain of chest pain on and off over the last few days, but had not been willing to go to the hospital to have this evaluated. Daughter does not believe that she has a history of cardiac issues or any stents. MD Complaint: abdominal pain - Related Data Home Medications Medication Instructions Recorded Confirmed Atorvastatin [Lipitor] 40 mg PO DAILY 03/22/19 03/22/19 Insulin NPH Hum/Reg Insulin Hm 120 unit SQ BID 03/22/19 03/22/19 [NovoLIN 70-30 100 UNIT/ML VIAL] Levothyroxine Sodium [Synthroid] 50 mcg PO DAILY 03/22/19 03/22/19 Losartan/Hydrochlorothiazide 1 tab PO DAILY 03/22/19 03/22/19 [Losartan-Hctz 100-25 mg Tab] Meloxicam 7.5 mg PO BID 03/22/19 03/22/19 OXcarbazepine [Trileptal] 300 mg PO DAILY 03/22/19 03/22/19 OXcarbazepine [Trileptal] 600 mg PO HS 03/22/19 03/22/19 Omeprazole 40 mg PO BID 03/22/19 03/22/19 Oxybutynin Chloride 5 mg PO BID 03/22/19 03/22/19 Sertraline [Zoloft] 200 mg PO DAILY 03/22/19 03/22/19 amLODIPine [Norvasc] 5 mg PO DAILY 03/22/19 03/22/19 Previous Rx's Medication Instructions Recorded Lidocaine 5% Oint [Xylocaine 5% 1 applic TOPICAL BID #30 oint...g. 03/24/19 Oint] Allergies Allergy/AdvReac Type Severity Reaction Status Date / Time No Known Allergies Allergy Verified 04/15/24 20:51 Review of Systems ROS Statement: Those systems with pertinent positive or pertinent negative responses have been documented in the HPI. ROS Other: All systems not noted in ROS Statement are negative. Past Medical History Past Medical History: Diabetes Mellitus, Hyperlipidemia, Hypertension, Osteoarthritis (OA), Thyroid Disorder Additional Past Medical History / Comment(s): IDDM type II, neuropathy R leg, hypoglycemia at night, past gastric ulcers, diverticulitis, constipation, arthritis in several joints, back pain, hypothyroid, bilateral cataracts, incontinence of urine, URI History of Any Multi-Drug Resistant Organisms: None Reported Past Surgical History: Appendectomy, Breast Surgery, Cholecystectomy, Orthopedic Surgery Additional Past Surgical History / Comment(s): Lower laminectomy x 2, L knee arthroscopy, L breast benign biopsy, colonoscopy. Past Anesthesia/Blood Transfusion Reactions: Postoperative Nausea & Vomiting (PONV) Past Psychological History: Anxiety, Depression Smoking Status: Former smoker Past Alcohol Use History: None Reported Past Drug Use History: None Reported - Past Family History Father Additional Family Medical History / Comment(s): Father committed suicide in his late 50s. Mother Family Medical History: Cancer Additional Family Medical History / Comment(s): Mother in her late 80s from anesthesia complications. She had nonmalignant cerebral growth. Brother(s) Additional Family Medical History / Comment(s): Patient has 1 brother with diverticulosis. Sister(s) Additional Family Medical History / Comment(s): Patient has one sister with liver cancer and diabetes. Daughter(s) Additional Family Medical History / Comment(s): Patient has a total of 6 children. One son in a motor vehicle accident. One son has suffered a stroke with history of diabetes and hypertension. One daughter has diabetes and hypertension. One daughter with diverticulitis rheumatoid arthritis. One daughter and one son do not follow with physician. General Exam Limitations: language barrier General appearance: alert, in no apparent distress Head exam: Present: atraumatic, normocephalic, normal inspection Respiratory exam: Present: normal lung sounds bilaterally. Absent: respiratory distress, wheezes, rales, rhonchi, stridor Cardiovascular Exam: Present: regular rate, normal rhythm, normal heart sounds. Absent: systolic murmur, diastolic murmur, rubs, gallop, clicks GI/Abdominal exam: Present: soft, tenderness (Epigastric), normal bowel sounds. Absent: distended Neurological exam: Present: alert, oriented X3, CN II-XII intact Psychiatric exam: Present: normal affect, normal mood Skin exam: Present: warm, dry, intact, normal color. Absent: rash Course Vital Signs 04/15/24 04/15/24 04/15/24 20:47 22:41 22:54 Temperature 97.6 F Pulse Rate 76 73 74 Respiratory 18 18 18 Rate Blood Pressure 110/50 142/57 123/50 O2 Sat by Pulse 97 94 L 94 L Oximetry Medical Decision Making - Medical Decision Making This is an 78 year old female who presents to the emergency department for abdominal pain. Was pt. sent in by a medical professional or institution? @ -No Did you speak to anyone other than the patient for history? @ -No Did you review nursing and triage notes? @ -Yes, and I agree, it is accurate with regards to the patient's symptoms. Were old charts reviewed? @ -No Differential Diagnosis? @ -Differential Abdominal Pain Women: Appendicitis, Cholecystitis, diverticulosis, ischemic bowel, pancreatitis, hepatitis, UTI, gastroenteritis, AAA, incarcerated hernia, bowel obstruction, constipation, inflammatory bowel, hepatitis, peptic ulcer disease, splenic infarction, perforated viscus, vulvitis, ovarian torsion, PID, kidney stone, placenta abruption, this is not meant to be an all-inclusive list EKG interpreted by me (3pts min.)? @ -EKG interpreted by me demonstrating the following: Sinus rhythm. Ventricular rate 73 bpm, DC interval 172 ms, QRS duration 106 ms, QTc 458 ms. X-rays interpreted by me (1pt min.)? @ -Chest x-ray obtained, my interpretation identifies no localized consolidations or infiltrates. CT interpreted by me (1pt min.)? @ -CT scan of the abdomen and pelvis obtained. My interpretation identifies no evidence of bowel wall thickening or free air. U/S interpreted by me (1pt. min.)? @ -Not obtained What testing was considered but not performed? (CT, X-rays, U/S, labs)? Why? @ -None What meds were considered but not given? Why? @ -None Did you discuss the management of the patient with other professionals? @ -No Did you reconcile home meds? @ -No Was smoking cessation discussed for >3mins.? @ -No Was critical care preformed (if so, how long)? @ -No Were there social determinants of health that impacted care today? How? (Homelessness, low income, unemployed, alcoholism, drug addiction, transportation, low edu. Level, literacy, decrease access to med. care, long-term, rehab)? @ -No Was there de-escalation of care discussed even if they declined? (Discuss DNR or withdrawal of care, Hospice)? @ -No What co-morbidities impacted this encounter? (DM, HTN, Smoking, COPD, CAD, Cancer, CVA, Hep., AIDS, mental health diagnosis, sleep apnea, morbid obesity)? @ -DM, HLD, HTN Was patient admitted / discharged? @ -Admitted. Lab work demonstrates mild hypokalemia with a potassium of 3.3 and signs of dehydration. Lab work otherwise relatively unremarkable. 40 mEq of K-Dur and 500 mL of IV fluids administered. She has a somewhat decreased hemoglobin, however we have no recent values for comparison. CT scan of the abdomen and pelvis reveals an increased density in the subcutaneous tissue of the anterior pelvis and advised correlation for cellulitis. On examination of this area she does have lesions, however these are not compatible with cellulitis, they appear to be lesions compatible with aging. Her GI workup was essentially unremarkable. She was then starting to point to pain more so near the bottom of her chest. She was given sublingual nitroglycerin with a dramatic improvement in her symptoms. She was then given another sublingual nitroglycerin and Nitropaste was applied and her pain had essentially resolved. Given the improvement with nitroglycerin there was concern that pain could be cardiac in nature. It appears to be somewhere between the bottom of the chest and epigastric region. Patient subsequently admitted to medicine for cardiac rule out. Consult placed for cardiology and serial troponins ordered. Will keep patient n.p.o. after midnight in the event a stress test or any other intervention is needed. Case discussed with ED attending, Dr. Dutton. Undiagnosed new problem with uncertain prognosis? @ -None Drug Therapy requiring intensive monitoring for toxicity (Heparin, Nitro, Insulin, Cardizem)? @ -None Were any procedures done? @ -None Diagnosis/symptom? @ -Chest pain, epigastric pain Acute, or Chronic, or Acute on Chronic? @ -Acute Uncomplicated (without systemic symptoms) or Complicated (systemic symptoms)? @ -Complicated Side effects of treatment? @ -None Exacerbation, Progression, or Severe Exacerbation] @ -Not applicable Poses a threat to life or bodily function? @ -Yes, if due to ACS it can be life threatening - Lab Data Result diagrams: 04/15/24 21:06 04/15/24 21:06 Lab Results 04/15/24 04/15/24 04/15/24 Range/Units 21:05 21:06 21:06 WBC 5.9 (3.8-10.6) k/uL RBC 4.68 (3.80-5.40) m/uL Hgb 9.5 L (11.4-16.0) gm/dL Hct 32.1 L (34.0-46.0) % MCV 68.7 L (80.0-100.0) fL MCH 20.3 L (25.0-35.0) pg MCHC 29.6 L (31.0-37.0) g/dL RDW 17.0 H (11.5-15.5) % Plt Count 220 (150-450) k/uL MPV 8.5 Neutrophils % 78 % Lymphocytes % 11 % Monocytes % 7 % Eosinophils % 1 % Basophils % 1 % Neutrophils # 4.6 (1.3-7.7) k/uL Lymphocytes # 0.7 L (1.0-4.8) k/uL Monocytes # 0.4 (0-1.0) k/uL Eosinophils # 0.1 (0-0.7) k/uL Basophils # 0.0 (0-0.2) k/uL Hypochromasia Marked Anisocytosis Slight Microcytosis Marked Sodium 137 (137-145) mmol/L Potassium 3.3 L (3.5-5.1) mmol/L Chloride 100 (98-107) mmol/L Carbon Dioxide 28 (22-30) mmol/L Anion Gap 9 mmol/L BUN 30 H (7-17) mg/dL Creatinine 1.02 (0.52-1.04) mg/dL Est GFR (CKD-EPI)AfAm 60 (>60 ml/min/1.73 sqM) Est GFR (CKD-EPI)NonAf 52 (>60 ml/min/1.73 sqM) Glucose 315 H (74-99) mg/dL Plasma Lactic Acid Randy (0.7-2.0) mmol/L Calcium 9.0 (8.4-10.2) mg/dL Magnesium 2.1 (1.6-2.3) mg/dL Total Bilirubin 0.2 (0.2-1.3) mg/dL AST 21 (14-36) U/L ALT 10 (4-34) U/L Alkaline Phosphatase 171 H (38-126) U/L Troponin I (0.000-0.034) ng/mL Total Protein 7.1 (6.3-8.2) g/dL Albumin 4.5 (3.5-5.0) g/dL Amylase 161 H (30-110) U/L Lipase 228 (23-300) U/L Urine Color Light Yellow Urine Appearance Clear (Clear) Urine pH 5.5 (5.0-8.0) Ur Specific [place] 1.026 (1.001-1.035) Urine Protein Negative (Negative) Urine Glucose (UA) 1+ H (Negative) Urine Ketones Negative (Negative) Urine Blood Negative (Negative) Urine Nitrite Negative (Negative) Urine Bilirubin Negative (Negative) Urine Urobilinogen <2.0 (<2.0) mg/dL Ur Leukocyte Esterase Moderate H (Negative) Urine RBC <1 (0-5) /hpf Urine WBC 10 H (0-5) /hpf Ur Squamous Epith Cells 1 (0-4) /hpf Hyaline Casts 33 H (0-2) /lpf Urine Mucus Rare H (None) /hpf 04/15/24 04/15/24 Range/Units 21:06 21:06 WBC (3.8-10.6) k/uL RBC (3.80-5.40) m/uL Hgb (11.4-16.0) gm/dL Hct (34.0-46.0) % MCV (80.0-100.0) fL MCH (25.0-35.0) pg MCHC (31.0-37.0) g/dL RDW (11.5-15.5) % Plt Count (150-450) k/uL MPV Neutrophils % % Lymphocytes % % Monocytes % % Eosinophils % % Basophils % % Neutrophils # (1.3-7.7) k/uL Lymphocytes # (1.0-4.8) k/uL Monocytes # (0-1.0) k/uL Eosinophils # (0-0.7) k/uL Basophils # (0-0.2) k/uL Hypochromasia Anisocytosis Microcytosis Sodium (137-145) mmol/L Potassium (3.5-5.1) mmol/L Chloride (98-107) mmol/L Carbon Dioxide (22-30) mmol/L Anion Gap mmol/L BUN (7-17) mg/dL Creatinine (0.52-1.04) mg/dL Est GFR (CKD-EPI)AfAm (>60 ml/min/1.73 sqM) Est GFR (CKD-EPI)NonAf (>60 ml/min/1.73 sqM) Glucose (74-99) mg/dL Plasma Lactic Acid Randy 1.4 (0.7-2.0) mmol/L Calcium (8.4-10.2) mg/dL Magnesium (1.6-2.3) mg/dL Total Bilirubin (0.2-1.3) mg/dL AST (14-36) U/L ALT (4-34) U/L Alkaline Phosphatase (38-126) U/L Troponin I <0.012 (0.000-0.034) ng/mL Total Protein (6.3-8.2) g/dL Albumin (3.5-5.0) g/dL Amylase (30-110) U/L Lipase (23-300) U/L Urine Color Urine Appearance (Clear) Urine pH (5.0-8.0) Ur Specific [place] (1.001-1.035) Urine Protein (Negative) Urine Glucose (UA) (Negative) Urine Ketones (Negative) Urine Blood (Negative) Urine Nitrite (Negative) Urine Bilirubin (Negative) Urine Urobilinogen (<2.0) mg/dL Ur Leukocyte Esterase (Negative) Urine RBC (0-5) /hpf Urine WBC (0-5) /hpf Ur Squamous Epith Cells (0-4) /hpf Hyaline Casts (0-2) /lpf Urine Mucus (None) /hpf - Radiology Data Radiology results: report reviewed, image reviewed Disposition Clinical Impression: Chest pain, Epigastric pain Disposition: ADMITTED IP TO THIS HOSP Referrals: Tommy Monzon MD [Primary Care Provider] - 1-2 days
[2024-04-15] MEDS: SODIUM CHLORIDE 0.9% 500 ML 500 ML IV STA (21:24)
[2024-04-15 21:32] LABS: ALT 10 U/L (4-34); AST 21 U/L (14-36); African American GFR (CKD) 60 (>60 ml/min/1.73 sqM); Albumin 4.5 g/dL (3.5-5.0); Alkaline Phosphatase 171 U/L (38-126); Amylase 161 U/L (30-110); Anion Gap 9 mmol/L; Blood Urea Nitrogen 30 mg/dL (7-17); Carbon Dioxide 28 mmol/L (22-30); Chloride 100 mmol/L (98-107); Glucose 315 mg/dL (74-99); Lipase 228 U/L (23-300); Magnesium 2.1 mg/dL (1.6-2.3); Non-African American GFR(CKD) 52 (>60 ml/min/1.73 sqM); Potassium 3.3 mmol/L (3.5-5.1); Sodium 137 mmol/L (137-145); Total Bilirubin 0.2 mg/dL (0.2-1.3); Total Protein 7.1 g/dL (6.3-8.2)
[2024-04-15] MEDS: PANTOPRAZOLE 40 MG/10 ML VIAL IVP STA (21:33)
[2024-04-15 21:36] LABS: Anisocytosis Slight; Basophils % (A) 1 %; Eosinophils # (A) 0.1 k/uL (0-0.7); Eosinophils % (A) 1 %; HCT 32.1 % (34.0-46.0); HGB 9.5 gm/dL (11.4-16.0); Hypochromasia Marked; Lymphocytes # (A) 0.7 k/uL (1.0-4.8); Lymphocytes % (A) 11 %; MCH 20.3 pg (25.0-35.0); MCHC 29.6 g/dL (31.0-37.0); MCV 68.7 fL (80.0-100.0); Mean Platelet Volume 8.5; Microcytosis Marked; Monocytes # (A) 0.4 k/uL (0-1.0); Monocytes % (A) 7 %; Neutrophils # (A) 4.6 k/uL (1.3-7.7); Neutrophils % (A) 78 %; Platelet Count 220 k/uL (150-450); RBC 4.68 m/uL (3.80-5.40); WBC 5.9 k/uL (3.8-10.6)
--- NOTE | 2024-04-15 21:57 | CT ---
EXAMINATION TYPE: CT abdomen pelvis w con DATE OF EXAM: 04/15/2024 9:48 PM COMPARISON: None. CLINICAL INDICATION: Female, 78 years old with history of Epigastric pain, upper abdominal pain. irina es nausea and vomiting. family states problem with constipation. hx of IDDM type II, neuropathy R leg , hypoglycemia at night, past gastric ulcers, diverticulitis, constipation incontinence of urine TECHNIQUE: Axial images were obtained from above the diaphragm to the pubic rami in the axial plane a t 5 mm thick sections. Reconstructed images are reviewed on the computer in the coronal plane. CONTRAST: 80ml mL of Isovue 300. Study performed without Oral Contrast DLP: 1522.5 mGycm, Automated exposure control for dose reduction was used. FINDINGS: Limited CT sections are obtained the lung bases. The lung bases are clear. CT ABDOMEN: Liver: Normal Spleen: Normal Pancreas: Normal Adrenal glands: The adrenal glands are normal. Gallbladder: Surgically absent Kidneys: No masses are evident. No hydronephrosis is present. No cysts are present. Delayed images were obtained through the kidneys, which remain unremarkable. Aorta: Vascular calcification is within the aorta. Inferior vena cava: Normal. CT PELVIS: Inflammatory change and increased density within the subcutaneous tissue of the pedunculus is present. Underlying abscess is not identified. Correlate for cellulitis. Loops of bowel are within the parotid anterior abdominal wall hernia in the lower pelvis. No obstruct ed loops of bowel are evident. Loops of bowel within the abdomen and pelvis are normal. Diverticulosis without acute diverticulitis is present. This study is lateral contrast limits bowel evaluation. Appendix: Not identified. No dilated tubular structure or inflammatory change is evident. Urinary bladder: Normal. Genitourinary structures: Osseous structures: There is appears unremarkable. Adnexa are normal. IMPRESSION: 1. Diverticulosis without acute diverticulitis. 2. Increased density within the subcutaneous tissue of the anterior pelvis. Correlate for cellulitis. No underlying abscess is identified. [facility], , 04/15/2024 9:55 PM
[2024-04-15] MEDS: KETOROLAC 15 MG/ML 1 ML VIAL IVP STA (22:00)
[2024-04-15] MEDS: FAMOTIDINE 20 MG/2 ML VIAL IV STA (22:02)
[2024-04-15 22:26] LABS: Appearance,Urine Clear (Clear); Bilirubin,Urine Negative (Negative); Blood,Urine Negative (Negative); Color,Urine Light Yellow; Glucose,Urine (UA) 1+ (Negative); Hyaline Casts,Urine 33 /lpf (0-2); Ketones,Urine Negative (Negative); Leukocyte Esterase,Urine Moderate (Negative); Mucus,Urine Rare /hpf; Nitrite,Urine Negative (Negative); PH, Urine 5.5 (5.0-8.0); Protein,Urine Negative (Negative); RBC,Urine <1 /hpf (0-5); Specific Gravity,Urine 1.026 (1.001-1.035); Squamous Epithelial Cell,Urine 1 /hpf (0-4); Urobilinogen,Urine <2.0 mg/dL (<2.0); WBC,Urine 10 /hpf (0-5)
[2024-04-15] MEDS: POTASSIUM CHLORIDE ER 20 MEQ TAB.ER PO STA (22:29)
[2024-04-15] MEDS: MAG HYDROX/AL HYDROX/SIMETH 30 ML, HYOSCYAMINE ELIXIR 10 ML PO STA (22:38)
[2024-04-15] MEDS: NITROGLYCERIN SL TABS 0.4 MG TAB SUBLINGUAL STA ×2 (22:50→23:04)
[2024-04-15] MEDS: MAG HYDROX/AL HYDROX/SIMETH 30 ML, HYOSCYAMINE ELIXIR 10 ML, LIDOCAINE VISCOUS 2% 10 ML PO STA (23:05)
[2024-04-15] MEDS: NITROGLYCERIN OINT 1 INCH/GM PACKET TOPICAL STA (23:06)
[2024-04-15] MEDS ORDERED: ONDANSETRON 4 MG/2 ML VIAL IVP PRN (23:22)
[2024-04-15] MEDS ORDERED: ACETAMINOPHEN TAB 325 MG TAB PO PRN (23:22)
[2024-04-15] MEDS ORDERED: MORPHINE SULFATE 4 MG/ML SYRINGE IV PRN (23:22)
[2024-04-15] MEDS ORDERED: NALOXONE 0.4 MG/ML 1 ML VIAL IV PRN (23:22)
--- NOTE | 2024-04-16 00:59 | XR ---
EXAM: XR Chest, 2 Views CLINICAL HISTORY: ITS.REASON XR Reason: Chest pain TECHNIQUE: Frontal and lateral views of the chest. COMPARISON: No relevant prior studies available. FINDINGS: Lungs: Unremarkable. No consolidation. Pleural space: Unremarkable. No pneumothorax. Heart: Cardiomegaly. Mediastinum: Unremarkable. Normal mediastinal contour. Bones/joints: Displaced fracture of the LEFT proximal humerus. Vasculature: Calcified aorta. IMPRESSION: Displaced fracture of the LEFT proximal humerus.
[2024-04-16] MEDS: PANTOPRAZOLE 40 MG/10 ML VIAL IV SCH (09:19)
--- NOTE | 2024-04-16 10:09 | CONS ---
CONSULTATION CHIEF COMPLAINT: Chest pain. HISTORY OF PRESENT ILLNESS: This is an 78-year-old lady with history of hypertension, diabetes, dyslipidemia, who presented to [facility] primarily with epigastric pain. With epigastric discomfort, she usually has syncopes and near syncopes. She has had these symptoms for a while, in fact had a fall recently, and fractured her left humerus. She had a similar event yesterday, due to which she is brought to the emergency room and admitted, and we are consulted for possible chest pain. Her symptoms seem to be primarily epigastric pain, and the syncope that she had is probably vasovagal in origin. At the time of my evaluation, the patient is symptom-free. Does not have chest pain or epigastric pain. EKG shows sinus rhythm without acute ST-T wave changes and her troponins are negative. Hemoglobin is low at 9.5. Potassium is 3.3. There is no prior history of coronary artery disease or congestive heart failure. There is no recent cardiac workup on her. She was admitted to [facility] a few years ago. I do not have those records with me at this time, but her predominant problem seems to be GI in origin with epigastric discomfort and a significant drop in her hemoglobin from 12.5 to 9.5 within the last 3 weeks. I am going to obtain a 2D echo to evaluate her LV function. Other than that, her workup needs to be directed towards the abdominal discomfort, and her syncope, I think, is more vasovagal in origin. Once the anemia issues are addressed and the abdominal pain issues are addressed, I will consider further evaluation for syncope as outpatient. If necessary, perform a stress test on her. PAST MEDICAL HISTORY: Significant for, 1. Hypertension. 2. Diabetes. 3. Dyslipidemia. CURRENT MEDICATIONS: Include: 1. Norvasc. 2. Zoloft. 3. Trileptal. 4. Losartan. 5. Hydrochlorothiazide. 6. Levothyroxine. 7. Insulin. 8. Lipitor. ALLERGIES: There are no known drug allergies. FAMILY HISTORY: Negative for premature coronary artery disease. SOCIAL HISTORY: Negative for current smoking issues or drug abuse. REVIEW OF SYSTEMS: HEENT: Unremarkable. CARDIAC: As described above. RESPIRATORY: As described above. GI: As described above. GENITOURINARY: Negative. ALLERGY/IMMUNOLOGY: Negative. SKIN: Negative. MUSCULOSKELETAL: Recent fall and fracture. PSYCHOSOCIAL: Negative. DERM: Negative. CONSTITUTIONAL: Negative. Rest of the system review is not relevant. PHYSICAL EXAMINATION: GENERAL: Comfortable at rest. VITAL SIGNS: Stable. NECK: There is no jugular venous distention. Carotid upstroke is normal. There is no bruit. CHEST: Reveals good air entry bilaterally. HEART: Reveals first and second heart sounds. No gallop. Has a systolic murmur at the apex. ABDOMEN: Soft. EXTREMITIES: Did not reveal any edema. Peripheral pulses are felt. ASSESSMENT: 1. Syncope, probably vasovagal in origin, related to abdominal pain. 2. Epigastric pain with anemia and needs workup per primary. PLAN: I am going to obtain a 2D echo and decide on further course of action. MMODL / IJN: [id number] /
[2024-04-16 10:39] LABS: Glucose,Whole Blood 221 mg/dL (70-110)
[2024-04-16] MEDS: SERTRALINE 100 MG TAB PO SCH (10:41)
[2024-04-16] MEDS: LOSARTAN 50 MG TAB PO SCH (10:42)
[2024-04-16] MEDS: amLODIPine 5 MG TAB PO SCH (10:42)
[2024-04-16] MEDS: LEVOTHYROXINE 50 MCG TAB PO SCH (10:42)
[2024-04-16] MEDS: INSULN ASP PRT/INSULIN ASPART 100 UNIT/ML 10 ML VIAL SQ SCH (13:13)
[2024-04-16] MEDS ORDERED: DEXTROSE 50% SYRINGE 50 ML IVP PRN ×2 (15:49)
[2024-04-16] MEDS: POTASSIUM CHLORIDE ER 20 MEQ TAB.ER PO STA (16:03)
[2024-04-16] MEDS: HEPARIN SODIUM,PORCINE 5,000 UNIT/ML 1 ML VIAL SQ SCH (16:04)
[2024-04-16] MEDS: SODIUM CHLORIDE 0.9% 1,000 ML IV SCH (16:04)
--- NOTE | 2024-04-16 16:05 | P.HPIM ---
History of Present Illness H&P Date: 04/16/24 Chief Complaint: Abdominal pain Patient is a 78-year-old female with a past medical history of hypertension, hyperlipidemia, diabetes type 2, hypothyroidism and recent history of fall,/syncope with left humerus fracture and sling currently, diabetic peripheral neuropathy history of back surgery, anxiety/depression and prior history of smoking Patient presents to ER with complaints of Abdominal pain mainly in the epigastric region and also left-sided chest pain radiating to the back. Patient has been having symptoms on and off which got worse yesterday. According to her daughter patient had similar symptoms when she had constipation and fecal impaction. Denied any nausea or vomiting. Denied any recent diarrhea. Coronary artery patient has been passing out especially when she goes to the bathroom. No fever no chills. CT abdomen pelvis showed diverticulosis without acute diverticulitis. Increased density within the subcutaneous tissue of the anterior pelvis. Correlate for cellulitis. No underlying abscesses identified. EKG showed sinus rhythm Chest x-ray showed displaced fracture of the left proximal humerus. Laboratory data showed WBC 5.9 hemoglobin 9.5 MCV 68.7 and platelets 220 sodium 137 potassium 3.3 chloride 100 bicarb is 28 BUN 30 and creatinine 1.02 and blood sugar 315 and alk phos 171 and troponin x 3 negative amylase 161 lipase 228 Urinalysis showed moderate leuk trase history revealed with WBCs 10. Patient otherwise denied any dysuria or hematuria. Review of Systems Constitutional: Patient denies any fever or chills . No generalized weakness or weight loss. Abdomen: Patient does complain of epigastric abdominal pain with nausea. No diarrhea. Patient does have constipation. Cardiovascular: Patient denies any chest pain or short of breath no palpitations. Respiratory: patient denied any cough or sputum production. No shortness of breath Neurologic: Patient denied any numbness or tingling. no headache. Musculoskeletal: Patient denies any complaints of joint swelling or deformity. Skin: Negative Psychiatric: Negative Endocrine: No heat or cold intolerance. No recent weight gain. Genitourinary: No dysuria or hematuria. All other 14 point ROS negative except the above Past Medical History Past Medical History: Diabetes Mellitus, Hyperlipidemia, Hypertension, Osteoarthritis (OA), Thyroid Disorder Additional Past Medical History / Comment(s): IDDM type II, neuropathy R leg, hypoglycemia at night, past gastric ulcers, diverticulitis, constipation, arthritis in several joints, back pain, hypothyroid, bilateral cataracts, incontinence of urine, URI History of Any Multi-Drug Resistant Organisms: None Reported Past Surgical History: Appendectomy, Breast Surgery, Cholecystectomy, Orthopedic Surgery Additional Past Surgical History / Comment(s): Lower laminectomy x 2, L knee arthroscopy, L breast benign biopsy, colonoscopy. Past Anesthesia/Blood Transfusion Reactions: Postoperative Nausea & Vomiting (PONV) Past Psychological History: Anxiety, Depression Smoking Status: Former smoker Past Alcohol Use History: None Reported Past Drug Use History: None Reported - Past Family History Father Additional Family Medical History / Comment(s): Father committed suicide in his late 50s. Mother Family Medical History: Cancer Additional Family Medical History / Comment(s): Mother in her late 80s from anesthesia complications. She had nonmalignant cerebral growth. Brother(s) Additional Family Medical History / Comment(s): Patient has 1 brother with diverticulosis. Sister(s) Additional Family Medical History / Comment(s): Patient has one sister with liver cancer and diabetes. Daughter(s) Additional Family Medical History / Comment(s): Patient has a total of 6 children. One son in a motor vehicle accident. One son has suffered a stroke with history of diabetes and hypertension. One daughter has diabetes and hypertension. One daughter with diverticulitis rheumatoid arthritis. One daughter and one son do not follow with physician. Medications and Allergies Home Medications Medication Instructions Recorded Confirmed Type Atorvastatin [Lipitor] 40 mg PO DAILY 03/22/19 04/16/24 History Insulin NPH Hum/Reg Insulin Hm 100 unit SQ DAILY 03/22/19 04/16/24 History [NovoLIN 70-30 100 UNIT/ML VIAL] Levothyroxine Sodium [Synthroid] 50 mcg PO DAILY 03/22/19 04/16/24 History Losartan/Hydrochlorothiazide 1 tab PO DAILY 03/22/19 04/16/24 History [Losartan-Hctz 100-25 mg Tab] Meloxicam 7.5 mg PO BID 03/22/19 04/16/24 History OXcarbazepine [Trileptal] 300 mg PO DAILY 03/22/19 04/16/24 History OXcarbazepine [Trileptal] 600 mg PO HS 03/22/19 04/16/24 History Omeprazole 40 mg PO BID 03/22/19 04/16/24 History Sertraline [Zoloft] 200 mg PO DAILY 03/22/19 04/16/24 History amLODIPine [Norvasc] 5 mg PO DAILY 03/22/19 04/16/24 History Cyclobenzaprine [Flexeril] 10 mg PO HS 04/16/24 04/16/24 History Furosemide [Lasix] 40 mg PO DAILY 04/16/24 04/16/24 History Venlafaxine HCl ER [Effexor Xr] 150 mg PO HS 04/16/24 04/16/24 History Allergies Allergy/AdvReac Type Severity Reaction Status Date / Time No Known Allergies Allergy Verified 04/16/24 09:49 Physical Exam Vitals: Vital Signs Temp Pulse Pulse Resp BP BP Pulse Ox 04/16/24 08:00 18 04/16/24 07:00 97.9 F 82 18 156/70 04/16/24 06:39 77 18 138/87 96 04/15/24 22:54 74 18 123/50 94 L 04/15/24 22:41 73 18 142/57 94 L 04/15/24 20:47 97.6 F 76 18 110/50 97 Intake and Output 04/15/24 04/16/24 04/16/24 22:59 06:59 14:59 Other: Weight 98.43 kg PHYSICAL EXAMINATION: Patient is lying in the bed comfortably, no acute distress, awake alert and oriented.. HEENT: Normocephalic. Neck is supple. Pupils reactive. Nostrils clear. Oral cavity is moist. Neck reveals no JVD, carotid bruits, or thyromegaly. CHEST EXAMINATION: Trachea is central. Symmetrical expansion. Lung garcia clear to auscultation and percussion. CARDIAC: Normal S1, S2 with no gallops. No murmurs ABDOMEN: Soft. Bowel sounds normal. No organomegaly. No abdominal bruits. Extremities: reveal no edema. No clubbing or cyanosis Neurologically awake, alert, oriented x3 with well-coordinated movements. No focal deficits noted Skin: No rash or skin lesions. Psychiatric: Coperative. Nonsuicidal Musculoskeletal: No joint swelling or deformity. Left shoulder sling in place Results CBC & Chem 7: 04/15/24 21:06 04/15/24 21:06 Labs: Abnormal Lab Results - Last 24 Hours (Table) 04/15/24 04/15/24 04/15/24 Range/Units 21:05 21:06 21:06 Hgb 9.5 L (11.4-16.0) gm/dL Hct 32.1 L (34.0-46.0) % MCV 68.7 L (80.0-100.0) fL MCH 20.3 L (25.0-35.0) pg MCHC 29.6 L (31.0-37.0) g/dL RDW 17.0 H (11.5-15.5) % Lymphocytes # 0.7 L (1.0-4.8) k/uL Potassium 3.3 L (3.5-5.1) mmol/L BUN 30 H (7-17) mg/dL Glucose 315 H (74-99) mg/dL Alkaline Phosphatase 171 H (38-126) U/L Amylase 161 H (30-110) U/L Urine Glucose (UA) 1+ H (Negative) Ur Leukocyte Esterase Moderate H (Negative) Urine WBC 10 H (0-5) /hpf Hyaline Casts 33 H (0-2) /lpf Urine Mucus Rare H (None) /hpf Thrombosis Risk Factor Assmnt - DVT/VTE Prophylaxis DVT/VTE Prophylaxis: Mechanical Prophylaxis ordered Assessment and Plan Assessment: Epigastric abdominal pain. Possible gastritis versus peptic ulcer disease cannot be ruled out Microcytic anemia with hemoglobin 9.5. Rule out iron deficiency Syncopal episode likely vasovagal Chronic constipation history of fecal impaction Elevated amylase level Hypokalemia. Replaced. Hypertension Hyperlipidemia Diabetes type 2 Hypothyroidism History of recent fall/syncope on February 08, 2024 with proximal left humerus fracture. Currently in sling DVT prophylax with SCDs Anxiety/depression GI prophylaxis PPI Plan: Patient will be started on gentle IV hydration with normal saline. Monitor H&H. Continue with PPI IV. Fecal occult blood was ordered. Follow-up iron profile. Cardiology was consulted for: Syncopal episode likely due to vasovagal. 2D echocardiogram was ordered. Troponin x 1 negative. Continue with daily monitoring. Currently her home medications insulin sliding scale and regimen. Follow-up closely. Prognosis guarded. Discussed with her daughter at bedside in detail. Time with Patient: Greater than 30
[2024-04-16 17:08] LABS: Glucose,Whole Blood 291 mg/dL (70-110)
[2024-04-16] MEDS: INSULIN ASPART (NovoLOG) 100 UNIT/ML VIAL SQ SCH (17:33)
[2024-04-16 20:29] LABS: Glucose,Whole Blood 205 mg/dL (70-110)
[2024-04-16] MEDS: OXcarbazepine 300 MG TAB PO SCH (20:35)
[2024-04-16] MEDS: CYCLOBENZAPRINE 10 MG TAB PO SCH (20:35)
[2024-04-16] MEDS: VENLAFAXINE HCL ER 150 MG CAP PO SCH (20:35)
[2024-04-17 02:37] LABS: % Iron Saturation 4.15 (12.00-45.00)
[2024-04-17 06:12] LABS: Glucose,Whole Blood 144 mg/dL (70-110)
[2024-04-17] MEDS: ATORVASTATIN 40 MG TAB PO SCH (09:06)
[2024-04-17] MEDS: OXcarbazepine 300 MG TAB PO SCH (09:07)
[2024-04-17] MEDS ORDERED: SENNOSIDES 8.6 MG TAB PO PRN (10:31)
[2024-04-17 10:38] LABS: Blood Urea Nitrogen 14.6 mg/dL (9.0-27.0); Calcium 9.1 mg/dL (8.7-10.3); Carbon Dioxide 25.3 mmol/L (21.6-31.8); Chloride 108 mmol/L (96-109); Glucose 144 mg/dL (70-110); Sodium 143 mmol/L (135-145)
[2024-04-17 10:53] LABS: Basophils # (A) 0.06 X 10*3/uL (0.00-0.10); Basophils % (A) 1.2 %; Elliptocytes 2+; Eosinophils # (A) 0.09 X 10*3/uL (0.04-0.35); Eosinophils % (A) 1.9 %; HCT 31.6 % (37.2-46.3); Hypochromasia (M) 2+; Lymphocytes # (A) 1.06 X 10*3/uL (0.90-5.00); MCH 19.7 pg (27.0-32.0); MCHC 28.5 g/dL (32.0-37.0); Microcytosis (M) 3+; Monocytes # (A) 0.48 X 10*3/uL (0.20-1.00); NRBC Per 100 WBC 0 X 10*3/uL (0.00-0.01); Neutrophils # (A) 3.12 X 10*3/uL (1.80-7.70); Neutrophils % (A) 64.7 %; Platelet Count 208 X 10*3/uL (140-440); RBC 4.58 X 10*6/uL (4.10-5.20); RDW 18.2 % (11.5-14.5); WBC 4.82 X 10*3/uL (4.50-10.00)
[2024-04-17 12:22] LABS: Glucose,Whole Blood 180 mg/dL (70-110)
--- NOTE | 2024-04-17 15:37 | P.PN ---
Subjective Progress Note Date: 04/17/24 Interval History: Patient is a 78-year-old female with a past medical history of hypertension, hyperlipidemia, diabetes type 2, hypothyroidism and recent history of fall,/syncope with left humerus fracture and sling currently, diabetic peripheral neuropathy history of back surgery, anxiety/depression and prior history of smoking Patient presents to ER with complaints of Abdominal pain mainly in the epig astric region and also left-sided chest pain radiating to the back. Patient has been having symptoms on and off which got worse yesterday. According to her daughter patient had similar symptoms when she had constipation and fecal impaction. Denied any nausea or vomiting. Denied any recent diarrhea. Coronary artery patient has been passing out especially when she goes to the bathroom. No fever no chills. CT abdomen pelvis showed diverticulosis without acute diverticulitis. Increased density within the subcutaneous tissue of the anterior pelvis. Correlate for cellulitis. No underlying abscesses identified. EKG showed sinus rhythm Chest x-ray showed displaced fracture of the left proximal humerus. Laboratory data showed WBC 5.9 hemoglobin 9.5 MCV 68.7 and platelets 220 sodium 137 potassium 3.3 chloride 100 bicarb is 28 BUN 30 and creatinine 1.02 and blood sugar 315 and alk phos 171 and troponin x 3 negative amylase 161 lipase 228 Urinalysis showed moderate leuk trase history revealed with WBCs 10. Patient otherwise denied any dysuria or hematuria. Assessment and plan: Epigastric abdominal pain--suspect peptic ulcer disease, history of cholecystectomy. Microcytic anemia with hemoglobin 9.5.--- Iron deficiency anemia Syncopal episode likely vasovagal Chronic constipation history of fecal impaction Elevated amylase level Hypokalemia. Replaced. Hypertension Hyperlipidemia Diabetes type 2 Hypothyroidism History of recent fall/syncope on February 08, 2024 with proximal left humerus fracture. Currently in sling Anxiety: Depression: Plan: IV fluids, monitor H&H, transfuse for hemoglobin less than 7.0 IV Protonix, Carafate. Iron supplement Echocardiogram, cardiology consult. Continue home medication, diabetic diet, sliding scale insulin General Surgery consult for evaluation for EGD ID consulted due to CT concerning for subcutaneous density anterior pelvic wall. DVT prophylaxis: Substance heparin Monitor vital signs and labs Labs and medication were reviewed. Continue same treatment. Further recommendations as per clinical course of the patient PHYSICAL EXAMINATION: GENERAL: The patient is A&O x3, NAD HEENT: EOMI, Sclerae anicteric, Moist Mucous membranes Neck: Supple, Non tender, No JVD PULMONARY: Equal breath souds B/L, No wheezing, No crackles. CARDIOVASCULAR: S1, S2 present. No murmurs, rubs, or gallops. ABDOMEN: Soft, epigastric tenderness, nondistended, normoactive bowel sounds. No guarding or rebound tenderness. MUSCULOSKELETAL: No edema, No cyanosis. No clubbing. Normal ROM. Intact peripheral pulses. EXTREMITIES: No cyanosis, clubbing, or pedal edema. NEUROLOGICAL: CN 2-12 grossly intact. No FND Skin: No Rash REVIEW OF SYSTEMS: CONSTITUTIONAL: No fever or chills. CARDIOVASCULAR: No chest pain, palpitations or syncope. PULMONARY: No shortness of breath, no cough, sore throat. GASTROINTESTINAL: Complains of epigastric pain. : No Dysuria, urgency, frequency. Extremities: No edema. NEUROLOGICAL: No headaches, no weakness, or numbness Dictation was produced using [employer] dictation software. please excuse any grammatical, word or spelling errors. Objective - Vital Signs Vital signs: Vital Signs Temp 97.7 F 04/17/24 14:55 Pulse 80 04/17/24 14:55 Resp 17 04/17/24 14:55 BP 170/70 04/17/24 14:55 Pulse Ox 99 04/17/24 14:55 FiO2 Intake & Output 04/16/24 04/17/24 04/17/24 18:59 06:59 18:59 Weight 98.43 kg Other: Voiding Method Toilet # Voids 1 4 - Labs CBC & Chem 7: 04/17/24 06:25 04/17/24 06:20 Labs: Abnormal Lab Results - Last 24 Hours (Table) 04/16/24 04/16/24 04/16/24 Range/Units 16:35 17:06 20:28 Hgb (12.0-15.0) g/dL Hct (37.2-46.3) % MCV (80.0-97.0) FL MCH (27.0-32.0) pg MCHC (32.0-37.0) g/dL RDW (11.5-14.5) % Hypochromasia (manual) Microcytosis (manual) Elliptocytes Creatinine (0.6-1.5) mg/dL BUN/Creatinine Ratio (12.00-20.00) Ratio Glucose (70-110) mg/dL POC Glucose (mg/dL) 291 H 205 H (70-110) mg/dL Hemoglobin A1c (<=6.0) % Iron 19 L (50-170) UG/DL % Saturation 4.15 L (12.00-45.00) 04/17/24 04/17/24 04/17/24 Range/Units 06:10 06:20 06:25 Hgb (12.0-15.0) g/dL Hct (37.2-46.3) % MCV (80.0-97.0) FL MCH (27.0-32.0) pg MCHC (32.0-37.0) g/dL RDW (11.5-14.5) % Hypochromasia (manual) Microcytosis (manual) Elliptocytes Creatinine 0.5 L (0.6-1.5) mg/dL BUN/Creatinine Ratio 29.20 H (12.00-20.00) Ratio Glucose 144 H (70-110) mg/dL POC Glucose (mg/dL) 144 H (70-110) mg/dL Hemoglobin A1c 6.8 H (<=6.0) % Iron (50-170) UG/DL % Saturation (12.00-45.00) 04/17/24 04/17/24 Range/Units 06:25 12:21 Hgb 9.0 L (12.0-15.0) g/dL Hct 31.6 L (37.2-46.3) % MCV 69.0 L (80.0-97.0) FL MCH 19.7 L (27.0-32.0) pg MCHC 28.5 L (32.0-37.0) g/dL RDW 18.2 H (11.5-14.5) % Hypochromasia (manual) 2+ A Microcytosis (manual) 3+ A Elliptocytes 2+ A Creatinine (0.6-1.5) mg/dL BUN/Creatinine Ratio (12.00-20.00) Ratio Glucose (70-110) mg/dL POC Glucose (mg/dL) 180 H (70-110) mg/dL Hemoglobin A1c (<=6.0) % Iron (50-170) UG/DL % Saturation (12.00-45.00)
[2024-04-17] MEDS: HYDROcodone/APAP 5-325MG 1 EACH TAB PO PRN (16:34)
[2024-04-17] MEDS: SUCRALFATE 1 GM TAB PO SCH (16:34)
[2024-04-17 17:04] LABS: Glucose,Whole Blood 137 mg/dL (70-110)
[2024-04-17 19:47] LABS: Glucose,Whole Blood 244 mg/dL (70-110)
[2024-04-17] MEDS: PANTOPRAZOLE 40 MG/10 ML VIAL IV SCH (20:19)
--- NOTE | 2024-04-17 20:26 | CA ---
Transthoracic Echo Report Name: Beth Cortes Age: 78 Gender: F : 1945 Exam Date: 04/17/2024 10:27 Exam Location: [facility] Ht (in): 59 Wt (lb): 217 Ordering Physician: Gaurang Presley MD ([id number]) Attending/Referring Phys: Product Safety Expert Rossy Chandra RDCS Procedure CPT: Indications: Chest Pain Cardiac Hx: Technical Quality: Good Contrast 1: Total Dose (mL): Contrast 2: Total Dose (mL): MEASUREMENTS (Male / Female) Normal Values 2D ECHO LV Diastolic Diameter PLAX 4.9 cm 4.2 - 5.9 / 3.9 - 5.3 cm LV Systolic Diameter PLAX 3.0 cm IVS Diastolic Thickness 1.7 cm 0.6 - 1.0 / 0.6 - 0.9 cm LVPW Diastolic Thickness 1.3 cm 0.6 - 1.0 / 0.6 - 0.9 cm LV Relative Wall Thickness 0.6 LVOT Diameter 2.3 cm LV Diastolic Volume MOD BP 90.5 cm??? 67 - 155 / 56 - 104 cm??? LV Systolic Volume MOD BP 33.7 cm??? 22 - 58 / 19 - 49 cm??? LV Ejection Fraction MOD BP 62.8 % >= 55 % LV Cardiac Index MOD BP 2070.1 cm???/min???m??? LV Diastolic Volume MOD 4C 90.7 cm??? LV Systolic Volume MOD 4C 36.7 cm??? LV Ejection Fraction MOD 4C 59.5 % LV Cardiac Index MOD 4C 1968.6 cm???/min???m??? LV Diastolic Length 4C 7.5 cm LV Systolic Length 4C 6.5 cm LV Diastolic Volume MOD 2C 87.7 cm??? LV Systolic Volume MOD 2C 29.7 cm??? LV Ejection Fraction MOD 2C 66.2 % LV Cardiac Index MOD 2C 2114.2 cm???/min???m??? LV Diastolic Length 2C 7.3 cm LV Systolic Length 2C 5.9 cm LA Volume 167.5 cm??? 18 - 58 / 22 - 52 cm??? LA Volume Index 80.3 cm???/m??? 16 - 28 cm???/m??? Ascending Aorta Diameter 3.1 cm DOPPLER AV Peak Velocity 208.7 cm/s AV Peak Gradient 17.4 mmHg AV Mean Velocity 136.4 cm/s AV Mean Gradient 8.5 mmHg AV Velocity Time Integral 43.1 cm LVOT Peak Velocity 128.0 cm/s LVOT Peak Gradient 6.6 mmHg LVOT Velocity Time Integral 27.6 cm LVOT Stroke Volume 113.4 cm??? LVOT Stroke Volume Index 59.4 ml/m??? LVOT Cardiac Index 4133.2 cm???/min???m??? AV Area Cont Eq vti 2.6 cm??? AV Area Cont Eq pk 2.5 cm??? MV Peak Velocity 201.3 cm/s MV Peak Gradient 16.2 mmHg MV Mean Velocity 140.6 cm/s MV Mean Gradient 8.4 mmHg MV Velocity Time Integral 53.4 cm MV Area PHT 2.4 cm??? Mitral E Point Velocity 166.7 cm/s Mitral A Point Velocity 127.8 cm/s Mitral E to A Ratio 1.3 MV Deceleration Time 318.0 ms TR Peak Velocity 334.4 cm/s TR Peak Gradient 44.7 mmHg Right Atrial Pressure 5.0 mmHg Pulmonary Artery Systolic Pressu 49.7 mmHg Right Ventricular Systolic Press 49.7 mmHg PV Peak Velocity 104.1 cm/s PV Peak Gradient 4.3 mmHg FINDINGS Left Ventricle Left ventricular ejection fraction is estimated at 55-60 %. Severely increased septal wall thickness. Mildly increased posterior wall thickness. Left ventricular cavity size normal. No obvious regional wall motion abnormalities. Right Ventricle Normal right ventricular size and function. Moderate to severe pulmonary hypertension. Right Atrium Normal right atrial size. Left Atrium Moderately increased left atrial area. Mitral Valve Mitral valve thickened. Severe mitral annular calcification. No evidence for mitral valve prolapse. Moderate to severe mitral stenosis. Mean gradient 9mmHg. Moderate mitral regurgitation. Aortic Valve Trileaflet aortic valve. No aortic stenosis. Mild aortic regurgitation. Tricuspid Valve Structurally normal tricuspid valve. No tricuspid stenosis. [id number] tricuspid regurgitation. Pulmonic Valve Pulmonic valve not well visualized. No pulmonic stenosis. No pulmonic regurgitation. Pericardium No pericardial effusion. Aorta Normal size aortic root and proximal ascending aorta. CONCLUSIONS Left ventricular ejection fraction is estimated at 55-60 %. No obvious regional wall motion abnormalities. Moderate left atrial dilatation Severe mitral annular calcification with moderate mitral regurgitation, moderate degenerative mitral stenosis. Moderate TR Previewed by: Dr Will Sherman (Electronically Signed) Final Date: 17 April 2024 20:25
--- NOTE | 2024-04-17 22:48 | P.CONS ---
History of Present Illness - Reason for Consult Consult date: 04/17/[address] Requesting physician: Reinier Manley - Chief Complaint Abdominal pain x 1 day - History of Present Illness Patient is a 78-year-old female with a past medical history significant for diabetes mellitus hypertension hyperlipidemia osteoarthritis patient has been brought into the hospital for evaluation of abdominal pain that apparently started the day before presentation to the hospital patient pain has been mostly in epigastric area intermittent initially subsequently becoming more severe and persistent describing it to be sharp moderate intensity without any radiation patient did have some nausea but no vomiting and also have some constipation with the symptoms the patient has been evaluated on presentation to the hospital the patient was afebrile and no fever have been recorded subsequently patient was not tachycardic hypotensive or hypoxic patient did have a white count of 4.82 with a left shift creatinine is normal electrolytes are normal liver enzymes are normal UA mildly positive patient did have abdominal pelvis CT which shows diverticulosis without acute diverticulitis increased density within the subcutaneous tissue of the anterior pelvis correlate for cellulitis and underlying abscess that has prompted this infectious disease consultation Review of Systems Positive point and negatives has been mentioned in the HPI, complete review of systems was performed and all other systems are negative Past Medical History Past Medical History: Diabetes Mellitus, Hyperlipidemia, Hypertension, Osteoarthritis (OA), Thyroid Disorder Additional Past Medical History / Comment(s): IDDM type II, neuropathy R leg, hypoglycemia at night, past gastric ulcers, diverticulitis, constipation, arthritis in several joints, back pain, hypothyroid, bilateral cataracts, incontinence of urine, URI History of Any Multi-Drug Resistant Organisms: None Reported Past Surgical History: Appendectomy, Breast Surgery, Cholecystectomy, Orthopedic Surgery Additional Past Surgical History / Comment(s): Lower laminectomy x 2, L knee arthroscopy, L breast benign biopsy, colonoscopy. Past Anesthesia/Blood Transfusion Reactions: Postoperative Nausea & Vomiting (PONV) Past Psychological History: Anxiety, Depression Additional Psychological History / Comment(s): Pt has adult grandson who resides with her. She has a cane and walker which she uses prn. 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 She understands [place] but takes longer to process/answer. She can read and write some in [place]. Primary language is Lao but pt/family request literature/discussions in [place] as family assist her greatly. Smoking Status: Former smoker Past Alcohol Use History: None Reported Additional Past Alcohol Use History / Comment(s): Patient was a smoker of 2 or more packs per day for 35 years and quit in 1994. No marijuana, illicit drug use or alcohol use. Past Drug Use History: None Reported - Past Family History Father Additional Family Medical History / Comment(s): Father committed suicide in his late 50s. Mother Family Medical History: Cancer Additional Family Medical History / Comment(s): Mother in her late 80s from anesthesia complications. She had nonmalignant cerebral growth. Brother(s) Additional Family Medical History / Comment(s): Patient has 1 brother with diverticulosis. Sister(s) Additional Family Medical History / Comment(s): Patient has one sister with liver cancer and diabetes. Daughter(s) Additional Family Medical History / Comment(s): Patient has a total of 6 children. One son in a motor vehicle accident. One son has suffered a stroke with history of diabetes and hypertension. One daughter has diabetes and hypertension. One daughter with diverticulitis rheumatoid arthritis. One daughter and one son do not follow with physician. Medications and Allergies Home Medications Medication Instructions Recorded Confirmed Type Atorvastatin [Lipitor] 40 mg PO DAILY 03/22/19 04/16/24 History Insulin NPH Hum/Reg Insulin Hm 100 unit SQ DAILY 03/22/19 04/16/24 History [NovoLIN 70-30 100 UNIT/ML VIAL] Levothyroxine Sodium [Synthroid] 50 mcg PO DAILY 03/22/19 04/16/24 History Losartan/Hydrochlorothiazide 1 tab PO DAILY 03/22/19 04/16/24 History [Losartan-Hctz 100-25 mg Tab] Meloxicam 7.5 mg PO BID 03/22/19 04/16/24 History OXcarbazepine [Trileptal] 300 mg PO DAILY 03/22/19 04/16/24 History OXcarbazepine [Trileptal] 600 mg PO HS 03/22/19 04/16/24 History Omeprazole 40 mg PO BID 03/22/19 04/16/24 History Sertraline [Zoloft] 200 mg PO DAILY 03/22/19 04/16/24 History amLODIPine [Norvasc] 5 mg PO DAILY 03/22/19 04/16/24 History Cyclobenzaprine [Flexeril] 10 mg PO HS 04/16/24 04/16/24 History Furosemide [Lasix] 40 mg PO DAILY 04/16/24 04/16/24 History Venlafaxine HCl ER [Effexor Xr] 150 mg PO HS 04/16/24 04/16/24 History Allergies Allergy/AdvReac Type Severity Reaction Status Date / Time No Known Allergies Allergy Verified 04/16/24 09:49 Physical Exam Vitals: Vital Signs Temp Pulse Pulse Resp BP BP Pulse Ox 04/17/24 07:00 97.5 F L 72 18 145/65 96 04/17/24 02:00 98.3 F 89 17 154/78 100 04/16/24 21:39 96 04/16/24 20:00 98.8 F 86 17 152/74 80 L 04/16/24 17:55 98.4 F 89 16 158/80 96 04/16/24 16:27 100 19 185/88 95 04/16/24 14:32 98.1 F 90 20 130/45 Intake and Output 04/16/24 04/17/24 04/17/24 22:59 06:59 14:59 Other: Voiding Method Toilet # Voids 1 1 Weight 98.43 kg GENERAL DESCRIPTION: Elderly female up in the chair, no distress. No tachypnea or accessory muscle of respiration use. HEENT: Shows Pallor , no scleral icterus. Oral mucous membrane is dry. No pharyngeal erythema or thrush NECK: Trachea central, no thyromegaly. LUNGS: Unlabored breathing. Clear to auscultation anteriorly. No wheeze or crackle. HEART: S1, S2, regular rate and rhythm. No loud murmur ABDOMEN: Soft, epigastric tenderness no swelling tenderness to the lower abdominal area EXTREMITIES: No edema of feet. SKIN: No rash, no masses palpable. NEUROLOGICAL: The patient is awake, alert, oriented x3, mood and affect normal. Results CBC & Chem 7: 04/17/24 06:25 04/17/24 06:20 Labs: Abnormal Lab Results - Last 24 Hours (Table) 04/16/24 04/16/24 04/16/24 Range/Units 16:35 17:06 20:28 Hgb (12.0-15.0) g/dL Hct (37.2-46.3) % MCV (80.0-97.0) FL MCH (27.0-32.0) pg MCHC (32.0-37.0) g/dL RDW (11.5-14.5) % Hypochromasia (manual) Microcytosis (manual) Elliptocytes Creatinine (0.6-1.5) mg/dL BUN/Creatinine Ratio (12.00-20.00) Ratio Glucose (70-110) mg/dL POC Glucose (mg/dL) 291 H 205 H (70-110) mg/dL Hemoglobin A1c (<=6.0) % Iron 19 L (50-170) UG/DL % Saturation 4.15 L (12.00-45.00) 04/17/24 04/17/24 04/17/24 Range/Units 06:10 06:20 06:25 Hgb (12.0-15.0) g/dL Hct (37.2-46.3) % MCV (80.0-97.0) FL MCH (27.0-32.0) pg MCHC (32.0-37.0) g/dL RDW (11.5-14.5) % Hypochromasia (manual) Microcytosis (manual) Elliptocytes Creatinine 0.5 L (0.6-1.5) mg/dL BUN/Creatinine Ratio 29.20 H (12.00-20.00) Ratio Glucose 144 H (70-110) mg/dL POC Glucose (mg/dL) 144 H (70-110) mg/dL Hemoglobin A1c 6.8 H (<=6.0) % Iron (50-170) UG/DL % Saturation (12.00-45.00) 04/17/24 04/17/24 Range/Units 06:25 12:21 Hgb 9.0 L (12.0-15.0) g/dL Hct 31.6 L (37.2-46.3) % MCV 69.0 L (80.0-97.0) FL MCH 19.7 L (27.0-32.0) pg MCHC 28.5 L (32.0-37.0) g/dL RDW 18.2 H (11.5-14.5) % Hypochromasia (manual) 2+ A Microcytosis (manual) 3+ A Elliptocytes 2+ A Creatinine (0.6-1.5) mg/dL BUN/Creatinine Ratio (12.00-20.00) Ratio Glucose (70-110) mg/dL POC Glucose (mg/dL) 180 H (70-110) mg/dL Hemoglobin A1c (<=6.0) % Iron (50-170) UG/DL % Saturation (12.00-45.00) Assessment and Plan (1) Abnormal abdominal CT scan Current Visit: Yes Status: Acute Code(s): R93.5 - ABN FINDINGS ON DX IMAGING OF ABD REGIONS, INC RETROPERITON SNOMED Code(s): 94751117579300293 (2) Abdominal pain Current Visit: No Status: Acute Code(s): R10.9 - UNSPECIFIED ABDOMINAL PAIN SNOMED Code(s): 80289505 Plan: 1patient presented to hospital abdominal pain which is mostly in epigastric area and the patient did have a tenderness concerning for possible peptic ulcer disease with a likely etiology 2-patient did have abnormal CT concerning for possible swelling or cellulitis to the anterior pelvis area however on clinical examination there was no swelling or redness or any tenderness, patient not running fever did not have an elevated white count making cellulitis to be less likely this has been explained to the family in layman terms and no need for systemic antibiotic therapy We will follow on clinical condition Thank you for this consultation we will follow the patient along with you Dictation was produced using [employer] dictation software. please excuse any grammatical, word or spelling errors. Time with Patient: Greater than 30
[2024-04-18 06:05] LABS: Glucose,Whole Blood 154 mg/dL (70-110)
[2024-04-18 07:50] LABS: Glucose,Whole Blood 155 mg/dL (70-110)
--- NOTE | 2024-04-18 07:51 | P.PN ---
Subjective Progress Note Date: 04/17/24 Patient got admitted to the hospital because of concerns of epigastric pain and discomfort. Recently she had a fall and fractured her left humerus. Cardiology was asked to evaluate patient for epigastric pain and and possible syncope which was considered to be vasovagal by the primary cisco engineer who saw her first. SUBJECTIVE: Patient is seen and examined at bedside this a.m. Patient denies any lig htheadedness or dizziness. She denies any chest pain. She mostly reports her pain is related to the epigastric area. PHYSICAL EXAMINATION Obese lady Neck: Brisk carotid upstroke, no jugular venous distention. Lungs: Clear to auscultation. Heart: Regular rate and rhythm, loud S1, normal S2 audible, systolic murmur and diastolic murmur audible in mitral area Abdomen: Soft , bowel sounds present, mild epigastric tenderness. Extremities: No edema, Neuro: Alert, oriented, no focal neurological deficits. Detailed neuro exam was not performed. 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 Acute on chronic anemia Obesity Cardiac testing Echocardiogram shows an EF of 55%, severe mitral annular calcification with degenerative moderate mitral stenosis. Moderate mitral regurgitation. PLAN Patient is planned to undergo possible GI evaluation on Friday with possible EGD. Patient is cleared to undergo this procedure from cardiac standpoint. Due to her valvular heart disease including moderate MR moderate mitral stenosis, I would recommend to discontinue HCTZ. Instead add metoprolol succinate 25 mg daily. Goal resting heart rate 50-80 bpm. Recommend cardiology follow-up thereafter. If she has not had any JUSTIN, she would benefit from an outpatient JUSTIN to evaluate the mitral valve and further de tails. She is not on anticoagulation. Patients with degenerative mitral stenosis with atrial enlargements are at increased risk of Atrial fibrillation. I would recommend her to get screened for A-fib with a 30- day event monitor to go home with. Patient is cleared from cardiac standpoint otherwise. Please reconsult us in case of any questions Objective - Vital Signs Vital signs: Vital Signs Temp 98.2 F 04/18/24 01:14 Pulse 74 04/18/24 01:14 Resp 17 04/18/24 01:14 BP 133/66 04/18/24 01:14 Pulse Ox 97 04/18/24 01:14 FiO2 Intake & Output 04/17/24 04/18/24 04/18/24 18:59 06:59 18:59 Intake Total 118 Balance 118 Intake: Oral 118 Other: Voiding Method Toilet Toilet # Voids 4 1 - Labs CBC & Chem 7: 04/17/24 06:25 04/17/24 06:20 Labs: Abnormal Lab Results - Last 24 Hours (Table) 04/17/24 04/17/24 04/17/24 Range/Units 06:20 06:25 06:25 Hgb 9.0 L (12.0-15.0) g/dL Hct 31.6 L (37.2-46.3) % MCV 69.0 L (80.0-97.0) FL MCH 19.7 L (27.0-32.0) pg MCHC 28.5 L (32.0-37.0) g/dL RDW 18.2 H (11.5-14.5) % Hypochromasia (manual) 2+ A Microcytosis (manual) 3+ A Elliptocytes 2+ A Creatinine 0.5 L (0.6-1.5) mg/dL BUN/Creatinine Ratio 29.20 H (12.00-20.00) Ratio Glucose 144 H (70-110) mg/dL POC Glucose (mg/dL) (70-110) mg/dL Hemoglobin A1c 6.8 H (<=6.0) % 04/17/24 04/17/24 04/17/24 Range/Units 12:21 17:02 19:45 Hgb (12.0-15.0) g/dL Hct (37.2-46.3) % MCV (80.0-97.0) FL MCH (27.0-32.0) pg MCHC (32.0-37.0) g/dL RDW (11.5-14.5) % Hypochromasia (manual) Microcytosis (manual) Elliptocytes Creatinine (0.6-1.5) mg/dL BUN/Creatinine Ratio (12.00-20.00) Ratio Glucose (70-110) mg/dL POC Glucose (mg/dL) 180 H 137 H 244 H (70-110) mg/dL Hemoglobin A1c (<=6.0) % 04/18/24 04/18/24 Range/Units 06:03 07:48 Hgb (12.0-15.0) g/dL Hct (37.2-46.3) % MCV (80.0-97.0) FL MCH (27.0-32.0) pg MCHC (32.0-37.0) g/dL RDW (11.5-14.5) % Hypochromasia (manual) Microcytosis (manual) Elliptocytes Creatinine (0.6-1.5) mg/dL BUN/Creatinine Ratio (12.00-20.00) Ratio Glucose (70-110) mg/dL POC Glucose (mg/dL) 154 H 155 H (70-110) mg/dL Hemoglobin A1c (<=6.0) %
[2024-04-18] MEDS: METOPROLOL SUCCINATE (ER) 25 MG TAB.ER.24H PO SCH (08:22)
[2024-04-18] MEDS: SODIUM FERRIC GLUCONAT-SUCROSE 125 MG in SODIUM CHLORIDE 0.9% 100 ML IVPB SCH (08:23)
[2024-04-18 08:31] LABS: Anisocytosis Slight; Basophils % (A) 1 %; Eosinophils # (A) 0.1 k/uL (0-0.7); Eosinophils % (A) 3 %; HCT 30.8 % (34.0-46.0); HGB 9.2 gm/dL (11.4-16.0); Hypochromasia Marked; Lymphocytes # (A) 0.9 k/uL (1.0-4.8); Lymphocytes % (A) 25 %; MCH 20.5 pg (25.0-35.0); MCHC 29.7 g/dL (31.0-37.0); MCV 68.9 fL (80.0-100.0); Mean Platelet Volume 6.9; Microcytosis Marked; Monocytes # (A) 0.3 k/uL (0-1.0); Monocytes % (A) 8 %; Neutrophils # (A) 2.3 k/uL (1.3-7.7); Neutrophils % (A) 62 %; Platelet Count 203 k/uL (150-450); RBC 4.47 m/uL (3.80-5.40); RDW 16.8 % (11.5-15.5); WBC 3.8 k/uL (3.8-10.6)
[2024-04-18 08:44] LABS: ALT 9 U/L (4-34); AST 21 U/L (14-36); African American GFR (CKD) >90 (>60 ml/min/1.73 sqM); Albumin/Globulin Ratio 1.5; Alkaline Phosphatase 139 U/L (38-126); Anion Gap 7 mmol/L; Blood Urea Nitrogen 17 mg/dL (7-17); Carbon Dioxide 27 mmol/L (22-30); Chloride 106 mmol/L (98-107); Globulin 2.7 g/dL; Glucose 163 mg/dL (74-99); Lipase 115 U/L (23-300); Non-African American GFR(CKD) 88 (>60 ml/min/1.73 sqM); Potassium 3.9 mmol/L (3.5-5.1); Sodium 140 mmol/L (137-145); Total Bilirubin 0.2 mg/dL (0.2-1.3); Total Protein 6.7 g/dL (6.3-8.2)
[2024-04-18 12:08] LABS: Glucose,Whole Blood 44 mg/dL (70-110)
[2024-04-18 12:11] LABS: Glucose,Whole Blood 56 mg/dL (70-110)
[2024-04-18 12:24] LABS: Glucose,Whole Blood 80 mg/dL (70-110)
--- NOTE | 2024-04-18 13:17 | P.PN ---
Subjective Progress Note Date: 04/18/24 Interval History: Patient is a 78-year-old female with a past medical history of hypertension, hyperlipidemia, diabetes type 2, hypothyroidism and recent history of fall,/syncope with left humerus fracture and sling currently, diabetic peripheral neuropathy history of back surgery, anxiety/depression and prior history of smoking Patient presents to ER with complaints of Abdominal pain mainly in the epig astric region and also left-sided chest pain radiating to the back. Patient has been having symptoms on and off which got worse yesterday. According to her daughter patient had similar symptoms when she had constipation and fecal impaction. Denied any nausea or vomiting. Denied any recent diarrhea. Coronary artery patient has been passing out especially when she goes to the bathroom. No fever no chills. CT abdomen pelvis showed diverticulosis without acute diverticulitis. Increased density within the subcutaneous tissue of the anterior pelvis. Correlate for cellulitis. No underlying abscesses identified. EKG showed sinus rhythm Chest x-ray showed displaced fracture of the left proximal humerus. Laboratory data showed WBC 5.9 hemoglobin 9.5 MCV 68.7 and platelets 220 sodium 137 potassium 3.3 chloride 100 bicarb is 28 BUN 30 and creatinine 1.02 and blood sugar 315 and alk phos 171 and troponin x 3 negative amylase 161 lipase 228 Urinalysis showed moderate leuk trase history revealed with WBCs 10. Patient otherwise denied any dysuria or hematuria. 04/18/2024 Patient was seen and examined today, daughter at bedside. Vital stable, afebrile, heart rate 86, respiratory rate 16, blood pressure 162/74, saturating 96% on room air. Patient was started on Protonix and Carafate yesterday, epigastric pain is improved. General surgery was consulted yesterday, recommended symptomatic management, no plan for EGD. Hemoglobin remained stable 9.2. WBCs 3.8, platelet 203. BMP unremarkable. Blood sugar was low today, decreased 70/30 insulin to 60 units. Will monitor blood sugars. Assessment and plan: Epigastric abdominal pain--suspect peptic ulcer disease, history of cholecystectomy. Microcytic anemia with hemoglobin 9.5.--- Iron deficiency anemia Syncopal episode likely vasovagal Chronic constipation history of fecal impaction Elevated amylase level Hypokalemia. Replaced. Hypertension Hyperlipidemia Diabetes type 2 Hypothyroidism History of recent fall/syncope on February 08, 2024 with proximal left humerus fracture. Currently in sling Anxiety: Depression: Plan: IV fluids, monitor H&H, transfuse for hemoglobin less than 7.0 IV Protonix, Carafate. Iron supplement Echocardiogram, cardiology consult. Continue home medication, diabetic diet, sliding scale insulin General Surgery consult for evaluation for EGD ID consulted due to CT concerning for subcutaneous density anterior pelvic wall--doubt cellulitis or infection, no antibiotics. Decrease insulin to 60 units NovoLog 70/30 mix. DVT prophylaxis: Substance heparin Monitor vital signs and labs Labs and medication were reviewed. Continue same treatment. Further recommendations as per clinical course of the patient PHYSICAL EXAMINATION: GENERAL: The patient is A&O x3, NAD HEENT: EOMI, Sclerae anicteric, Moist Mucous membranes Neck: Supple, Non tender, No JVD PULMONARY: Equal breath souds B/L, No wheezing, No crackles. CARDIOVASCULAR: S1, S2 present. No murmurs, rubs, or gallops. ABDOMEN: Soft, epigastric tenderness, nondistended, normoactive bowel sounds. No guarding or rebound tenderness. MUSCULOSKELETAL: No edema, No cyanosis. No clubbing. Normal ROM. Intact peripheral pulses. EXTREMITIES: No cyanosis, clubbing, or pedal edema. NEUROLOGICAL: CN 2-12 grossly intact. No FND Skin: No Rash REVIEW OF SYSTEMS: CONSTITUTIONAL: No fever or chills. CARDIOVASCULAR: No chest pain, palpitations or syncope. PULMONARY: No shortness of breath, no cough, sore throat. GASTROINTESTINAL: Complains of epigastric pain. : No Dysuria, urgency, frequency. Extremities: No edema. NEUROLOGICAL: No headaches, no weakness, or numbness Dictation was produced using [employer] dictation software. please excuse any grammatical, word or spelling errors. Objective - Vital Signs Vital signs: Vital Signs Temp 97.9 F 04/18/24 07:00 Pulse 86 04/18/24 07:00 Resp 16 04/18/24 07:00 BP 162/74 04/18/24 07:00 Pulse Ox 96 04/18/24 07:00 FiO2 Intake & Output 04/17/24 04/18/24 04/18/24 18:59 06:59 18:59 Intake Total 118 118 Balance 118 118 Intake: Oral 118 118 Other: Voiding Method Toilet Toilet Toilet # Voids 4 1 - Labs CBC & Chem 7: 04/18/24 08:16 04/18/24 08:16 Labs: Abnormal Lab Results - Last 24 Hours (Table) 04/17/24 04/17/24 04/18/24 Range/Units 17:02 19:45 06:03 Hgb (11.4-16.0) gm/dL Hct (34.0-46.0) % MCV (80.0-100.0) fL MCH (25.0-35.0) pg MCHC (31.0-37.0) g/dL RDW (11.5-15.5) % Lymphocytes # (1.0-4.8) k/uL Glucose (74-99) mg/dL POC Glucose (mg/dL) 137 H 244 H 154 H (70-110) mg/dL Alkaline Phosphatase (38-126) U/L 04/18/24 04/18/24 04/18/24 Range/Units 07:48 08:16 08:16 Hgb 9.2 L (11.4-16.0) gm/dL Hct 30.8 L (34.0-46.0) % MCV 68.9 L (80.0-100.0) fL MCH 20.5 L (25.0-35.0) pg MCHC 29.7 L (31.0-37.0) g/dL RDW 16.8 H (11.5-15.5) % Lymphocytes # 0.9 L (1.0-4.8) k/uL Glucose 163 H (74-99) mg/dL POC Glucose (mg/dL) 155 H (70-110) mg/dL Alkaline Phosphatase 139 H (38-126) U/L 04/18/24 04/18/24 Range/Units 11:59 12:10 Hgb (11.4-16.0) gm/dL Hct (34.0-46.0) % MCV (80.0-100.0) fL MCH (25.0-35.0) pg MCHC (31.0-37.0) g/dL RDW (11.5-15.5) % Lymphocytes # (1.0-4.8) k/uL Glucose (74-99) mg/dL POC Glucose (mg/dL) 44 L* 56 L (70-110) mg/dL Alkaline Phosphatase (38-126) U/L
[2024-04-18 15:14] LABS: Glucose,Whole Blood 89 mg/dL (70-110)
[2024-04-18 17:01] LABS: Glucose,Whole Blood 62 mg/dL (70-110)
[2024-04-18 17:18] LABS: Glucose,Whole Blood 71 mg/dL (70-110)
--- NOTE | 2024-04-18 19:01 | P.GSCN ---
History of Present Illness Consult date: 04/18/24 Reason for Consult: abdominal pain History of present illness: 78-year-old female who presents to the emergency department for abdominal pain. Family states that she started to complain of discomfort yesterday. It was initially intermittent and less severe, but seemed to get worse today. She has had some problems with constipation and family believes that that may be a contributing factor to her pain. Patient states that the pain is in the epigastric region and described as sharp. Family tried to give her MiraLAX and other stool softeners but she is not willing to take them. She has not had any nausea or vomiting. Family stated that she also started to complain of chest pain on and off over the last few days, but had not been willing to go to the hospital to have this evaluated. Daughter does not believe that she has a histo ry of cardiac issues or any stents. Review of Systems - Constitutional Reports as per HPI Past Medical History Past Medical History: Diabetes Mellitus, Hyperlipidemia, Hypertension, Osteoarthritis (OA), Thyroid Disorder Additional Past Medical History / Comment(s): IDDM type II, neuropathy R leg, hypoglycemia at night, past gastric ulcers, diverticulitis, constipation, arthritis in several joints, back pain, hypothyroid, bilateral cataracts, incontinence of urine, URI History of Any Multi-Drug Resistant Organisms: None Reported Past Surgical History: Appendectomy, Breast Surgery, Cholecystectomy, Orthopedic Surgery Additional Past Surgical History / Comment(s): Lower laminectomy x 2, L knee arthroscopy, L breast benign biopsy, colonoscopy. Past Anesthesia/Blood Transfusion Reactions: Postoperative Nausea & Vomiting (PONV) Past Psychological History: Anxiety, Depression Additional Psychological History / Comment(s): Pt has adult grandson who resides with her. She has a cane and walker which she uses prn. 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 She understands Tajik but takes longer to process/answer. She can read and write some in Tajik. Primary language is Kenyan but pt/family request literature/discussions in Tajik as family assist her greatly. Smoking Status: Former smoker Past Alcohol Use History: None Reported Additional Past Alcohol Use History / Comment(s): Patient was a smoker of 2 or more packs per day for 35 years and quit in 1994. No marijuana, illicit drug use or alcohol use. Past Drug Use History: None Reported - Past Family History Father Additional Family Medical History / Comment(s): Father committed suicide in his late 50s. Mother Family Medical History: Cancer Additional Family Medical History / Comment(s): Mother in her late 80s from anesthesia complications. She had nonmalignant cerebral growth. Brother(s) Additional Family Medical History / Comment(s): Patient has 1 brother with diverticulosis. Sister(s) Additional Family Medical History / Comment(s): Patient has one sister with liver cancer and diabetes. Daughter(s) Additional Family Medical History / Comment(s): Patient has a total of 6 children. One son in a motor vehicle accident. One son has suffered a stroke with history of diabetes and hypertension. One daughter has diabetes and hypertension. One daughter with diverticulitis rheumatoid arthritis. One daughter and one son do not follow with physician. Medications and Allergies Home Medications Medication Instructions Recorded Confirmed Type Atorvastatin [Lipitor] 40 mg PO DAILY 03/22/19 04/16/24 History Insulin NPH Hum/Reg Insulin Hm 100 unit SQ DAILY 03/22/19 04/16/24 History [NovoLIN 70-30 100 UNIT/ML VIAL] Levothyroxine Sodium [Synthroid] 50 mcg PO DAILY 03/22/19 04/16/24 History Losartan/Hydrochlorothiazide 1 tab PO DAILY 03/22/19 04/16/24 History [Losartan-Hctz 100-25 mg Tab] Meloxicam 7.5 mg PO BID 03/22/19 04/16/24 History OXcarbazepine [Trileptal] 300 mg PO DAILY 03/22/19 04/16/24 History OXcarbazepine [Trileptal] 600 mg PO HS 03/22/19 04/16/24 History Omeprazole 40 mg PO BID 03/22/19 04/16/24 History Sertraline [Zoloft] 200 mg PO DAILY 03/22/19 04/16/24 History amLODIPine [Norvasc] 5 mg PO DAILY 03/22/19 04/16/24 History Cyclobenzaprine [Flexeril] 10 mg PO HS 04/16/24 04/16/24 History Furosemide [Lasix] 40 mg PO DAILY 04/16/24 04/16/24 History Venlafaxine HCl ER [Effexor Xr] 150 mg PO HS 04/16/24 04/16/24 History Allergies Allergy/AdvReac Type Severity Reaction Status Date / Time No Known Allergies Allergy Verified 04/16/24 09:49 Surgical - Exam Osteopathic Statement: *. No significant issues noted on an osteopathic structural exam other than those noted in the History and Physical/Consult. Vital Signs Temp Pulse Resp BP Pulse Ox 97.6 F 76 18 110/50 97 04/15/24 20:47 04/15/24 20:47 04/15/24 20:47 04/15/24 20:47 04/15/24 20:47 - General gen: nad cv: rrr pul: non labored breathing abd: soft, min tender to palpation, no guarding or rebound tenderness Results - Labs 04/18/24 08:16 04/18/24 08:16 Abnormal Lab Results - Last 24 Hours (Table) 04/17/24 04/18/24 04/18/24 Range/Units 19:45 06:03 07:48 Hgb (11.4-16.0) gm/dL Hct (34.0-46.0) % MCV (80.0-100.0) fL MCH (25.0-35.0) pg MCHC (31.0-37.0) g/dL RDW (11.5-15.5) % Lymphocytes # (1.0-4.8) k/uL Glucose (74-99) mg/dL POC Glucose (mg/dL) 244 H 154 H 155 H (70-110) mg/dL Alkaline Phosphatase (38-126) U/L 04/18/24 04/18/24 04/18/24 Range/Units 08:16 08:16 11:59 Hgb 9.2 L (11.4-16.0) gm/dL Hct 30.8 L (34.0-46.0) % MCV 68.9 L (80.0-100.0) fL MCH 20.5 L (25.0-35.0) pg MCHC 29.7 L (31.0-37.0) g/dL RDW 16.8 H (11.5-15.5) % Lymphocytes # 0.9 L (1.0-4.8) k/uL Glucose 163 H (74-99) mg/dL POC Glucose (mg/dL) 44 L* (70-110) mg/dL Alkaline Phosphatase 139 H (38-126) U/L 04/18/24 04/18/24 Range/Units 12:10 17:00 Hgb (11.4-16.0) gm/dL Hct (34.0-46.0) % MCV (80.0-100.0) fL MCH (25.0-35.0) pg MCHC (31.0-37.0) g/dL RDW (11.5-15.5) % Lymphocytes # (1.0-4.8) k/uL Glucose (74-99) mg/dL POC Glucose (mg/dL) 56 L 62 L (70-110) mg/dL Alkaline Phosphatase (38-126) U/L Diabetes panel 04/18/24 Range/Units 08:16 Sodium 140 (137-145) mmol/L Potassium 3.9 (3.5-5.1) mmol/L Chloride 106 (98-107) mmol/L Carbon Dioxide 27 (22-30) mmol/L BUN 17 (7-17) mg/dL Creatinine 0.57 (0.52-1.04) mg/dL Glucose 163 H (74-99) mg/dL Calcium 9.0 (8.4-10.2) mg/dL AST 21 (14-36) U/L ALT 9 (4-34) U/L Alkaline Phosphatase 139 H (38-126) U/L Total Protein 6.7 (6.3-8.2) g/dL Albumin 4.0 (3.5-5.0) g/dL Calcium panel 04/18/24 Range/Units 08:16 Calcium 9.0 (8.4-10.2) mg/dL Albumin 4.0 (3.5-5.0) g/dL Pituitary panel 04/18/24 Range/Units 08:16 Sodium 140 (137-145) mmol/L Potassium 3.9 (3.5-5.1) mmol/L Chloride 106 (98-107) mmol/L Carbon Dioxide 27 (22-30) mmol/L BUN 17 (7-17) mg/dL Creatinine 0.57 (0.52-1.04) mg/dL Glucose 163 H (74-99) mg/dL Calcium 9.0 (8.4-10.2) mg/dL Adrenal panel 11/10/24 Range/Units 08:16 Sodium 140 (137-145) mmol/L Potassium 3.9 (3.5-5.1) mmol/L Chloride 106 (98-107) mmol/L Carbon Dioxide 27 (22-30) mmol/L BUN 17 (7-17) mg/dL Creatinine 0.57 (0.52-1.04) mg/dL Glucose 163 H (74-99) mg/dL Calcium 9.0 (8.4-10.2) mg/dL Total Bilirubin 0.2 (0.2-1.3) mg/dL AST 21 (14-36) U/L ALT 9 (4-34) U/L Alkaline Phosphatase 139 H (38-126) U/L Total Protein 6.7 (6.3-8.2) g/dL Albumin 4.0 (3.5-5.0) g/dL Assessment and Plan Assessment: 78 yo female w/ epigastric pain that has resolved, currently on mobic -outpatient egd -protonix bid -stop offending agent if possible Time with Patient: Less than 30
[2024-04-18 20:48] LABS: Glucose,Whole Blood 85 mg/dL (70-110)
[2024-04-19 05:58] LABS: Glucose,Whole Blood 83 mg/dL (70-110)
[2024-04-19 07:30] VITALS: TEMP 98.2
[2024-04-19] MEDS: INSULN ASP PRT/INSULIN ASPART 100 UNIT/ML 10 ML VIAL SQ SCH (08:28)
[2024-04-19 12:09] LABS: Glucose,Whole Blood 131 mg/dL (70-110)
--- NOTE | 2024-04-19 13:19 | P.PN ---
Subjective Progress Note Date: 04/19/24 SURGICAL PROGRESS NOTE CHIEF COMPLAINT: Epigastric abdominal pain HISTORY OF PRESENT ILLNESS: Patient currently reports no abdominal pain. She denies any nausea or vomiting. She is tolerating diet. Patient reports she think she is going home today. She is waiting for the auto body straightener. Afebrile. Vital stable. Hemoglobin 9.2 PHYSICAL EXAM: VITAL SIGNS: Reviewed. GENERAL: Well-developed in no acute distress. ABDOMEN: Soft. Nondistended. Nontender. NEUROLOGIC: Alert and oriented. Cranial nerves II through XII grossly intact. ASSESSMENT: 1. Epigastric abdominal pain now improved PLAN: -Recommend EGD outpatient -Continue Protonix -Stop offending agent if possible, like mobic -Okay for discharge from surgical standpoint Physician Graining Machine Operator note has been reviewed by physician. Signing provider agrees with the documented findings, assessment, and plan of care. Objective - Vital Signs Vital signs: Vital Signs Temp 98.2 F 04/19/24 07:00 Pulse 70 04/19/24 07:00 Resp 16 04/19/24 07:00 BP 131/64 04/19/24 07:00 Pulse Ox 98 04/19/24 07:00 FiO2 Intake & Output 04/18/24 04/19/24 04/19/24 18:59 06:59 18:59 Intake Total 236 118 Balance 236 118 Intake: Oral 236 118 Other: Voiding Method Toilet Toilet # Voids 3 2 - Labs CBC & Chem 7: 04/18/24 08:16 04/18/24 08:16 Labs: Abnormal Lab Results - Last 24 Hours (Table) 04/18/24 04/19/24 Range/Units 17:00 12:07 POC Glucose (mg/dL) 62 L 131 H (70-110) mg/dL
--- NOTE | 2024-04-19 15:01 | P.DS ---
Providers Date of admission: 04/15/24 23:39 Expected date of discharge: 04/19/24 Attending physician: Higinio Yang Consults: 04/15/24 23:22 Consult Physician Urgent Consulting Provider: Antonio Carolina Consult Reason/Comments: Chest pain Do you want consulting provider notified?: Yes 04/17/24 12:06 Consult Physician Urgent Consulting Provider: Alfredo Rueda Consult Reason/Comments: Epigastric pain, Possible EGD Do you want consulting provider notified?: Yes 04/17/24 12:59 Consult Physician Routine Consulting Provider: Venkatesh Villatoro Consult Reason/Comments: Ct showing subcutaneous density in pelvic soft tissue, ?cellulitis/infectio Do you want consulting provider notified?: Yes Primary care physician: Tommy Monzon [facility] Course: Discharge diagnoses: Epigastric abdominal pain--suspect peptic ulcer disease, history of cholecystectomy. Microcytic anemia with hemoglobin 9.5.--- Iron deficiency anemia Syncopal episode likely vasovagal Chronic constipation history of fecal impaction Elevated amylase level Hypokalemia. Replaced. Hypertension Hyperlipidemia Diabetes type 2 Hypothyroidism History of recent fall/syncope on February 08, 2024 with proximal left humerus fracture. Currently in sling Anxiety: Depression: Plan: Treated with IV fluids, hemoglobin monitored, remained stable. Received IV Protonix and Carafate, continued on p.o. Protonix Carafate at discharge, continued as needed at discharge. General surgery consultedrecommended outpatient EGD. IV fluids, monitor H&H, transfuse for hemoglobin less than 7.0 IV Protonix, Carafate. Iron supplement Echocardiogram done, cardiology was consulted, recommended to DC hydrochlorothiazide event monitor at discharge and outpatient JUSTIN. Echocardiogram showed EF 55%, severe mitral annular calcification with degenerative moderate mitral stenosis, moderate MR. ID consulted due to CT concerning for subcutaneous density anterior pelvic wall--doubt cellulitis or infection, no antibiotics. Decrease insulin to 60 units NovoLog 70/30 mix. Hospital course: Patient is a 78-year-old female with a past medical history of hypertension, hyperlipidemia, diabetes type 2, hypothyroidism and recent history of fall,/syncope with left humerus fracture and sling currently, diabetic peripheral neuropathy history of back surgery, anxiety/depression and prior history of smoking Patient presents to ER with complaints of Abdominal pain mainly in the epigastric region and also left-sided chest pain radiating to the back. Patient has been having symptoms on and off which got worse yesterday. According to her daughter patient had similar symptoms when she had constipation and fecal impaction. Denied any nausea or vomiting. Denied any recent diarrhea. Coronary artery patient has been passing out especially when she goes to the bathroom. No fever no chills. CT abdomen pelvis showed diverticulosis without acute diverticulitis. Increased density within the subcutaneous tissue of the anterior pelvis. Correlate for cellulitis. No underlying abscesses identified. EKG showed sinus rhythm Chest x-ray showed displaced fracture of the left proximal humerus. Laboratory data showed WBC 5.9 hemoglobin 9.5 MCV 68.7 and platelets 220 sodium 137 potassium 3.3 chloride 100 bicarb is 28 BUN 30 and creatinine 1.02 and blood sugar 315 and alk phos 171 and troponin x 3 negative amylase 161 lipase 228 Urinalysis showed moderate leuk trase history revealed with WBCs 10. Patient otherwise denied any dysuria or hematuria. 04/18/2024 Patient was seen and examined today, daughter at bedside. Vital stable, afebrile, heart rate 86, respiratory rate 16, blood pressure 162/74, saturating 96% on room air. Patient was started on Protonix and Carafate yesterday, ep igastric pain is improved. General surgery was consulted yesterday, recommended symptomatic management, no plan for EGD. Hemoglobin remained stable 9.2. WBCs 3.8, platelet 203. BMP unremarkable. Blood sugar was low today, decreased 70/30 insulin to 60 units. Will monitor blood sugars. 04/19/2024atient condition and vital remained stable. Blood sugar remained stable. Insulin dose decreased to 60 units at discharge, advised the patient and daughter to check blood sugars and keep a log and follow-up with with PCP within 1 week. Patient continued on Protonix twice daily and Carafate at discharge, continued on oral iron. Epigastric pain remained improved. General surgery signed off, recommended outpatient follow-up for EGD, PCP to refer to GI for outpatient EGD. Cardiology recommended to discontinue hydrochlorothiazide and added Toprol-XL at discharge. Event monitor placed prior to discharge. PHYSICAL EXAMINATION: GENERAL: The patient is A&O x3, NAD HEENT: EOMI, Sclerae anicteric, Moist Mucous membranes Neck: Supple, Non tender, No JVD PULMONARY: Equal breath souds B/L, No wheezing, No crackles. CARDIOVASCULAR: S1, S2 present. No murmurs, rubs, or gallops. ABDOMEN: Soft, nontender, nondistended, normoactive bowel sounds. No guarding or rebound tenderness. MUSCULOSKELETAL: No edema, No cyanosis. No clubbing. Normal ROM. Intact peripheral pulses. EXTREMITIES: No cyanosis, clubbing, or pedal edema. NEUROLOGICAL: CN 2-12 grossly intact. No FND SKIN: No rashes. Dictation was produced using [employer] dictation software. please excuse any gram matical, word or spelling errors. Patient Condition at Discharge: Fair Plan - Discharge Summary Discharge Rx Participant: Yes New Discharge Prescriptions: New Insuln Asp Prt/Insulin Aspart [NovoLOG MIX 70-30 VIAL] 60 unit SQ DAILY #1 each Metoprolol Succinate (ER) [Toprol XL] 25 mg PO DAILY #30 tab Sucralfate [Carafate] 1 gm PO ACHS #120 tab Losartan [Cozaar] 50 mg PO DAILY #30 tab Ferrous Sulfate [Iron (65 MG Elemental)] 325 mg PO DAILY #30 tab Continue OXcarbazepine [Trileptal] 300 mg PO DAILY amLODIPine [Norvasc] 5 mg PO DAILY Sertraline [Zoloft] 200 mg PO DAILY OXcarbazepine [Trileptal] 600 mg PO HS Levothyroxine Sodium [Synthroid] 50 mcg PO DAILY Atorvastatin [Lipitor] 40 mg PO DAILY Omeprazole 40 mg PO BID Cyclobenzaprine [Flexeril] 10 mg PO HS Furosemide [Lasix] 40 mg PO DAILY Venlafaxine HCl ER [Effexor XR] 150 mg PO HS Discontinued Meloxicam 7.5 mg PO BID Losartan/Hydrochlorothiazide [Losartan-Hctz 100-25 mg Tab] 1 tab PO DAILY Insulin NPH Hum/Reg Insulin Hm [NovoLIN 70-30 100 UNIT/ML VIAL] 100 unit SQ DAILY Discharge Medication List Atorvastatin [Lipitor] 40 mg PO DAILY 03/22/19 [History] Levothyroxine Sodium [Synthroid] 50 mcg PO DAILY 03/22/19 [History] OXcarbazepine [Trileptal] 300 mg PO DAILY 03/22/19 [History] OXcarbazepine [Trileptal] 600 mg PO HS 03/22/19 [History] Omeprazole 40 mg PO BID 03/22/19 [History] Sertraline [Zoloft] 200 mg PO DAILY 03/22/19 [History] amLODIPine [Norvasc] 5 mg PO DAILY 03/22/19 [History] Cyclobenzaprine [Flexeril] 10 mg PO HS 04/16/24 [History] Furosemide [Lasix] 40 mg PO DAILY 04/16/24 [History] Venlafaxine HCl ER [Effexor XR] 150 mg PO HS 04/16/24 [History] Ferrous Sulfate [Iron (65 MG Elemental)] 325 mg PO DAILY #30 tab 04/19/24 [Rx] Insuln Asp Prt/Insulin Aspart [NovoLOG MIX 70-30 VIAL] 60 unit SQ DAILY #1 each 04/19/24 [Rx] Losartan [Cozaar] 50 mg PO DAILY #30 tab 04/19/24 [Rx] Metoprolol Succinate (ER) [Toprol XL] 25 mg PO DAILY #30 tab 04/19/24 [Rx] Sucralfate [Carafate] 1 gm PO ACHS #120 tab 04/19/24 [Rx] Follow up Appointment(s)/Referral(s): [facility] [NON-STAFF] - As Needed [facility] [REFERRING] - As Needed Tommy Monzon MD [Primary Care Provider] - 1-2 days Discharge Disposition: HOME SELF-CARE
[2024-04-19 15:20] VITALS: BP 135/75; PULSE 68; RESP 17
== END 2024-04-19 16:35 | disposition home or self-care (01) ==
LOC: EC 20:45 → 6NMEDSUR 23:39
PROVIDERS: ADMIT Hospitalist; ATTEND Hospitalist
DX: K57.30 Diverticulosis of large intestine without perforation or abscess without bleeding (principal); I34.81 Nonrheumatic mitral (valve) annulus calcification; I34.2 Nonrheumatic mitral (valve) stenosis; R07.89 Other chest pain; R74.8 Abnormal levels of other serum enzymes; K59.09 Other constipation; D50.9 Iron deficiency anemia, unspecified; E11.42 Type 2 diabetes mellitus with diabetic polyneuropathy; E78.5 Hyperlipidemia, unspecified; E87.6 Hypokalemia; E03.9 Hypothyroidism, unspecified; E66.9 Obesity, unspecified; L03.90 Cellulitis, unspecified; I10 Essential (primary) hypertension; S42.202D Unspecified fracture of upper end of left humerus, subsequent encounter for fracture with routine healing; F32.A Depression, unspecified; F41.9 Anxiety disorder, unspecified; Z79.1 Long term (current) use of non-steroidal anti-inflammatories (NSAID); Z79.4 Long term (current) use of insulin; Z79.899 Other long term (current) drug therapy; Z79.890 Hormone replacement therapy; Z87.891 Personal history of nicotine dependence; Z91.81 History of falling; Z90.49 Acquired absence of other specified parts of digestive tract; Z83.3 Family history of diabetes mellitus; Z82.49 Family history of ischemic heart disease and other diseases of the circulatory system
CPT/HCPCS: 96376 ×4; 96365; 96366; 96372 ×5; 96361; 96375; 99285; 36415 ×2; 93005; 93306; 93270; 80053 ×2; 80048; 82150; 83540; 83550; 83605; 83690 ×2; 83735; 84484 ×2; 85025 ×3; 81001; 83036; 71046; 74177; G0378 ×5; J1644 ×4; J3490; J2916 ×2; J1885; Q9967; J2470 ×5